=== PATIENT | male | born 1925 | race Caucasian/White ===

== ENCOUNTER 2017-01-30 10:49 | Inpatient (IN) | payer OTHER, MEDICARE ==
[~2017-01-30] VITALS: Ht 177.8 cm; Wt 61.7 kg
[~2017-01-30 10:49] MED LIST: ANTIVERT 12.512.5 MG PO; ANUSOL HC30 GM TOP; ASPIRIN CHILDRE81 MG PO; ASPIRIN EC81 M1 PO; ATORVASTATIN CA20 MG PO; ATORVASTATIN CA40 MG PO; ATORVASTATIN CA80 MG PO; CARVEDILOL12.5 M1 PO; CLOPIDOGREL75 M1 PO; LANOXIN-DIGO0.125 MG PO; LISINOPRIL2.5 MG; LISINOPRIL2.5 MG PO; LOPRESSOR 12.12.5 MG PO; MAGNESIUM OXID400 M1 PO; MIDODRINE HCL10 MG PO; MIDODRINE HCL5 M1 PO; MIDODRINE HYDRO10 MG PO; MULTIPLE VITAM1 EAC2 PO; MULTIVITAMIN1 TAB PO; OMEGA 31000 MG PO; PANTOPRAZOLE SO40 MG PO; PROCTOSOL-HC2.5% RC; PROTONIX 40MG T40 MG PO; RANEXA 500MG500 MG; RANEXA 500MG500 MG PO; RANITIDINE HYD150 MG PO; RAPAFLO8 MG PO; SERTRALINE HYD100 MG PO; SERTRALINE50 MG PO; TRAMADOL50 MG PO; XARELTO10 MG PO; ZANTAC150 M1 PO; ZOLOFT100 M1 PO
--- NOTE | 2017-01-30 10:56 | NUR ---
PT TO ED WITH C/O HEADACHE AND DIZZINESS. PT FELL 4 DAYS AGO DUE TO BEING DIZZY, HIT HEAD ON FLOOR, - LOC. PT C/O WEAKNESS. STATES PT HAS BEEN FALLING ALOT LATELY. PT IS NOT ON BLOOD THINNERS. PT TAKEN TO ROOM 1 FROM TRIAGE.
--- NOTE | 2017-01-30 11:05 | ED GENERAL ADULT ---
History of Present Illness General Chief Complaint: General Adult Stated Complaint: WERANESS, JOSÉ, VOMITING Source: patient, family Exam Limitations: poor historian Vital Signs & Intake/Output Vital Signs & Intake/Output Vital Signs Date Time Temp Pulse Resp B/P Pulse O2 O2 Flow FiO2 Ox Delivery Rate 01/30 1919 98.3 85 18 152/70 95 Room Air 01/30 1759 97.1 81 18 120/59 98 01/30 1439 98.2 80 18 138/76 96 01/30 1206 98 Room Air 01/30 1053 97.1 89 20 111/69 97 Room Air Allergies Coded Allergies: No Known Allergies (01/30/17) Reconcile Medications Atorvastatin Calcium 40 MG TABLET 1 TAB PO DAILY CHOLESTEROL (Reported) Carvedilol 12.5 MG TABLET 1 TAB PO BID HEART (Reported) Cholecalciferol (Vitamin D3) 1,000 UNIT TABLET 1 TAB PO DAILY SUPPLEMENT ( Reported) Droxidopa (Northera) 300 MG CAPSULE 2 CAP PO TIDAC UNKNOWN (Reported) Magnesium Oxide 400 MG TABLET 1 TAB PO BID SUPPLEMENT (Reported) Multivitamin (Multiple Vitamins) 1 EACH TABLET 1 TAB PO QPM SUPPLEMENT ( Reported) Ranitidine HCl (Zantac) 150 MG TABLET 1 TAB PO BID GI (Reported) Ranolazine (Ranexa) 500 MG TAB.ER.12H 1 TAB PO BID ANGINA (Reported) Sertraline HCl (Zoloft) 100 MG TABLET 1 TAB PO DAILY MENTAL HEALTH (Reported) Triage Note: PT TO ED WITH C/O HEADACHE AND DIZZINESS. PT FELL 4 DAYS AGO DUE TO BEING DIZZY, HIT HEAD ON FLOOR, - LOC. PT C/O WEAKNESS. STATES PT HAS BEEN FALLING ALOT LATELY. PT IS NOT ON BLOOD THINNERS. PT TAKEN TO ROOM 1 FROM TRIAGE. Triage Nurses Notes Reviewed? yes Onset: Abrupt Duration: day(s): Timing: recent history HPI: 01/30/17 11:28 AM This is an 89-year-old man who presents to the emergency department for frequent falls and headache. According to the patient and his he was in his usual state of health until 4 days ago when he fell and hit his head. He complains of pain in the top of his head. He also admits to weakness. He also says that he' s had some shortness of breath but this is ongoing and intermittent. The onset of the symptoms been abrupt, the duration has been for 4 days, the severity is significant; as his symptoms required him to come to the emergency department for care. He has associated weakness and headache. Past History Travel History Traveled to [place] past 21 day No Medical History Any Pertinent Medical History? see below for history Neurological: vertigo, IMBALANCE DIFFICULTIES SUBDURAL HEMATOMA EENT: cataracts, hearing loss Cardiovascular: AFIB, hyperlipidemia, myocardial infarction, CABGX3 ORTHOSTATIC HYPOTENSION CARDIAC CATHERIZATION ISCHEMIC CARDIOMYOPATHY 3 CARDIAC STENTS CHF, PACER/DEFIBLCW Respiratory: NONE Gastrointestinal: GERD Hepatic: NONE Renal: NONE Musculoskeletal: NONE Psychiatric: depression Endocrine: NONE Blood Disorders: NONE Cancer(s): adrenal cancer GENERATION TECHNOLOGIST/Reproductive: NONE History of MRSA: No History of VRE: No History of CDIFF: No Tetanus Vaccine: 03/03/15 Surgical History Surgical History: appendectomy, cholecystectomy, hernia repair-inguinal, TRIPLE BYPASS CARDIAC Psychosocial History Who do you live with Spouse Services at Home None What is your primary language Yi Tobacco Use: Quit >30 days ago ETOH Use: denies use Illicit Drug Use: denies illicit drug use Family History Family History, If Any: FATHER, . Relation not specified for: FHx: heart disease Hx Contributory? No Review of Systems Review of Systems Constitutional: Denies: fever. EENTM: Denies: visual changes. Respiratory: Reports: short of breath. Cardiovascular: Denies: chest pain. GI: Denies: abdominal pain. Genitourinary: Reports: no symptoms. Musculoskeletal: Reports: no symptoms. Skin: Denies: rash. Neurological/Psychological: Reports: headache. Hematologic/Endocrine: Denies: bruising. Physical Exam Physical Exam General Appearance: alert, awake, anxious, mild distress Head: normal appearance, scar at top of head Eyes: Bilateral: normal appearance, PERRL, EOMI. Ears, Nose, Throat: normal pharynx, normal ENT inspection Neck: normal inspection, supple, full range of motion, no midline tenderness Respiratory: chest non-tender, no respiratory distress Cardiovascular: regular rate/rhythm Peripheral Pulses: 4+ radial (R), 4+ radial (L) Gastrointestinal: soft, non-tender Back: decreased range of motion Extremities: pedal edema Neurologic/Psych: no motor/sensory deficits, awake, alert, oriented x 3 Skin: intact, normal color, warm/dry Core Measures ACS in differential dx? No CVA/TIA Diagnosis: No Severe Sepsis Present: No Septic Shock Present: No Progress Differential Diagnoses I considered the following diagnoses in my evaluation of the patient: [ Dehydration, adverse drug reaction, dysrhythmia, acute coronary syndrome, CVA, TIA, intracranial bleed] Plan of Care: Orders Procedure Date/time Status Heart Healthy Diet 01/[address] HEAD WO IV CONTRAST 01/31 1100 Active CBC WITHOUT DIFFERENTIAL 01/31 0600 Active Heart Healthy Diet 01/30 D Complete Lab Add-on Test 01/30 1807 Active Patient Data 01/30 1738 Active PT Evaluate & Treat 01/30 1723 Active Pathway - chart 01/30 1723 Active House Staff 01/30 1723 Active Patient Data 01/30 1723 Active Code Status 01/30 1723 Active Patient Data 01/30 1325 Active Admit to inpatient 01/30 1315 Active Vital Signs 01/30 1315 Active Intake & Output 01/30 1206 Active PROTHROMBIN TIME 01/30 1152 Complete MAGNESIUM 01/30 1152 Complete Add-on Test (ER Only) 01/30 1147 Active TROPONIN LEVEL 01/30 1122 Complete COMPREHENSIVE METABOLIC PANEL 01/30 1122 Complete CBC WITHOUT DIFFERENTIAL 01/30 1122 Complete EKG 01/30 1122 Active VTE Mechanical Prophylaxis 01/30 UNK Active Telemetry/Pattern Chain Builder 01/30 UNK Active NIH Stroke Scale 01/30 UNK Active Current Medications Sig/Rossana Start time Last Medication Dose Stop Time Status Admin Atorvastatin Calcium 40 MG 1700 01/31 1700 AC (Lipitor) Cholecalciferol 1,000 IU DAILY 01/31 1000 AC (Vitamin D) Sertraline HCl 100 MG DAILY 01/31 1000 AC (Zoloft) Carvedilol 12.5 MG BID 01/30 2200 AC (Coreg) Famotidine 20 MG BID 01/30 2200 AC (Pepcid) Magnesium Oxide 400 MG BID 01/30 2200 AC (Mag-Ox) Multivitamins 1 TAB QPM 01/30 2200 AC Therapeutic (Theragran-M Vitamins Tabs) Ranolazine 500 MG BID 01/30 2200 AC (Ranexa) Droxidopa 600 MG TIDAC 01/30 1815 AC (Northera) Acetaminophen 650 MG Q6P PRN 01/30 1730 AC (Tylenol) Laboratory Tests 03/28/17 1152: Anion Gap 7, Estimated GFR > 60, BUN/Creatinine Ratio 25.0, Glucose 123 H, Calcium 9.6, Magnesium 1.9, Total Bilirubin 0.7, AST 24, ALT 32, Alkaline Phosphatase 76, Troponin I < 0.01, Total Protein 6.4, Albumin 4.0, Globulin 2.4, Albumin/Globulin Ratio 1.7, PT 13.3 H, INR 1.27 H, CBC w Diff NO MAN DIFF REQ, RBC 4.11 L, MCV 91.3, MCH 30.7, RDW 14.5, MPV 7.7, Gran % 69.8, Lymphocytes % 16.7 L, Monocytes % 10.7 H, Eosinophils % 2.0, Basophils % 0.8, Absolute Granulocytes 6.3, Absolute Lymphocytes 1.5, Absolute Monocytes 1.0 H, Absolute Eosinophils 0.2, Absolute Basophils 0.1, PUBS MCHC 33.7 Initial ED EKG: NSR, nonspecific interventricular conduction delay, PVC Departure Departure Disposition: STILL A PATIENT Condition: Guarded Clinical Impression Primary Impression: Headache Secondary Impressions: Acute subdural hematoma Referrals: CATRINA ALLEN,YANNI Saul (PCP/Family) Departure Forms: Customer Survey General Discharge Information Admission Note Spoke With: GAUDENCIO LEA MD Documentation of Exam: Documentation of any treatments & extenuating circumstances including Concerns Regarding Discharge (functional status, medication knowledge or non-compliance, living conditions, etc.) that warrant an admission rather than observation: [The patient needs admission for serial CT scans, neurosurgical consultation, neuro checks every 6 hours] The patient's CT revealed acute subdural hematoma He was treated with IV Tylenol I discussed the case with the on-call neurosurgeon Dr. Lindquist. We are in agreement with the plan of care. Medical admission. Neuro checks. Repeat CT scan of the head in 24 hours. She will see the patient in consult. CT scan results shown below PATIENT: VENTURA ORTIZ PRESENT AGE: 89 PATIENT ACCOUNT NO: [id number] : [birth year] LOCATION: [facility] ORDERING PHYSICIAN: MELVINA SHAVER DO SERVICE DATE: 01/30/17 EXAM TYPE: CAT - CT HEAD WO IV CONTRAST EXAMINATION: CT HEAD WITHOUT CONTRAST CLINICAL INFORMATION: Fall, head trauma. COMPARISON: 11/05/2015 TECHNIQUE: Contiguous axial imaging was performed from the skull base to vertex without intravenous administration of contrast. DLP: 601 mGy-cm FINDINGS: There is subdural hematoma layering along the falx and extending along the left tentorial leaflet. This measures approximately 1.2 cm in maximal thickness along the falx above the level of the ventricles. Additional subdural hematoma is seen along the left cerebral convexity, measuring up to 0.5 cm at the level of the lateral ventricles. Due to underlying volume loss, there is minimal local mass effect. No midline shift. No evidence of territorial infarction. Sorto to white matter differentiation is well preserved. No intraparenchymal hemorrhage or intraventricular hemorrhage is visualized. No hydrocephalus. Moderate underlying volume loss. Mild patchy periventricular and deep white matter hypoattenuation is consistent with small vessel ischemic change. The osseous structures and soft tissues are normal. The mastoid air cells and visualized portions of the paranasal sinuses are well aerated. IMPRESSION: Subdural hematoma with blood products along the falx and left tentorial leaflet and extending along the left cerebral convexity. No significant mass effect. No midline shift. This critical result was discussed with MELVINA SHAVER MD by telephone at 01/30/2017 12:00 PM and it was ascertained that the content and urgency of the report was understood at the time of direct communication. DICTATED BY: JORDI LEIJA MD DATE/TIME DICTATED:01/30/171154 CIGARETTE FILTER INSPECTOR:ALEXANDER DATE/TIME TRANSCRIBED:01/30/171154 CONFIDENTIAL, DO NOT COPY WITHOUT APPROPRIATE AUTHORIZATION. <Electronically signed in Other Vendor System> SIGNED BY: JORDI LEIJA MD 01/30 1200 Critical Care Note Critical Care Note Critical Care Time: 30-74 min
[2017-01-30] MEDS ORDERED: ATORVASTATIN CA40 M1 PO (11:06)
[2017-01-30] MEDS ORDERED: VITAMIN E100 UNI1 PO (11:08)
[2017-01-30] MEDS ORDERED: NORTHERA300 MG PO (11:09)
[2017-01-30] MEDS ORDERED: RANEXA500 M1 PO (11:11)
--- NOTE | 2017-01-30 11:34 | NUR ---
PT TAKEN TO ROOM 1 VIA W/C. MET IN ROOM BY STUDENT AND LISHA BURK. TAKEN TO CT SCAN VIA STRETCHER
--- NOTE | 2017-01-30 12:02 | NUR ---
BACK FROM CT SCAN PT SPEAKING CLEARLY WITH NO DEFICITS NOTED. ALERT/ORIENTED X 4, CONVERSING ABOUT /FAMILY/HIS PAST WITH NO DEFICITS OR CONFUSION NOTED. PT REPORTS LONG HISTORY OF DIZZINESS - "FOR YEARS, KAM BEEN TO 2 SPECIALISTS AND THEY DONT KNOW ..." - REPORTS MULTIPLE RECENT FALLS. PT STATES HE SUSTAINS NO INJURIES WITH FALLS THOUGH REPORTS HEADACHE (FRONTAL) X 5 DAYS. DENIES BLURRED VISION. INTERMITTENT NAUSEA. PT STATES "I FELT BETTER TODAY AND WASNT GOING TO COME IN" HOWEVER CALLED PMD AND WAS ADVISED TO SEEK EVALUATION. DEFIBRILLATOR NOTED TO L UPPER CHEST. NOT PACER PER PT BLOODWORK SENT BY [facility] WENDY SMITH EST. NORMAL SALINE INFUSING @ 75 ML/HR PER JAN. BLANKETS/PILLOW PROVIDED. PT DENIES NEEDING ANYTHING ELSE AT THIS TIME
--- NOTE | 2017-01-30 12:05 | CT SCAN REPORT ---
EXAMINATION: CT HEAD WITHOUT CONTRAST CLINICAL INFORMATION: Fall, head trauma. COMPARISON: 11/05/2015 TECHNIQUE: Contiguous axial imaging was performed from the skull base to vertex without intravenous administration of contrast. DLP: 601 mGy-cm FINDINGS: There is subdural hematoma layering along the falx and extending along the left tentorial leaflet. This measures approximately 1.2 cm in maximal thickness along the falx above the level of the ventricles. Additional subdural hematoma is seen along the left cerebral convexity, measuring up to 0.5 cm at the level of the lateral ventricles. Due to underlying volume loss, there is minimal local mass effect. No midline shift. No evidence of territorial infarction. Sorto to white matter differentiation is well preserved. No intraparenchymal hemorrhage or intraventricular hemorrhage is visualized. No hydrocephalus. Moderate underlying volume loss. Mild patchy periventricular and deep white matter hypoattenuation is consistent with small vessel ischemic change. The osseous structures and soft tissues are normal. The mastoid air cells and visualized portions of the paranasal sinuses are well aerated. IMPRESSION: Subdural hematoma with blood products along the falx and left tentorial leaflet and extending along the left cerebral convexity. No significant mass effect. No midline shift. This critical result was discussed with MELVINA SHAVER MD by telephone at 01/30/2017 12:00 PM and it was ascertained that the content and urgency of the report was understood at the time of direct communication.
[2017-01-30 12:10] LABS: ABSOLUTE BASOPHIL COUNT 0.1 /CUMM (0.0-0.2); ABSOLUTE EOSINOPHIL COUNT 0.2 /CUMM (0.0-0.7); ABSOLUTE GRANULOCYTE CT 6.3 /CUMM (1.4-6.5); ABSOLUTE LYMPH COUNT 1.5 /CUMM (1.2-3.4); BASOPHIL % 0.8 % (0.0-2.0); GRANULOCYTE % 69.8 % (42.2-75.2); HEMATOCRIT 37.5 % (42-52); MEAN CORPUSCULAR HGB 30.7 PG (27.0-31.0); MEAN CORPUSCULAR HGB CONC 33.7 G/DL (33.0-37.0); MEAN CORPUSCULAR VOLUME 91.3 FL (80.0-94.0); MEAN PLATELET VOLUME 7.7 FL (7.4-10.4); PLATELET COUNT 162 /CUMM (130-400); RBC DISTRIBUTION WIDTH 14.5 % (11.5-14.5); RED BLOOD CELL CT 4.11 /CUMM (4.70-6.10)
[2017-01-30 12:12] LABS: PT 13.3 SEC (9.4-12.5)
--- NOTE | 2017-01-30 12:31 | Cons- Neurosurgical ---
General Information and HPI Consulting Request Date of Consult: 01/30/17 Requested By: Dr. Brown, ED Reason for Consult: trauma, ICH Source of Information: patient, ED, records Exam Limitations: no limitations History of Present Illness: 89-year-old man who presents to the emergency department for frequent falls and headache. According to the patient he sustained a fall at home almost 2 weeks ago with injury to the right hip and was in his usual state of health until last Sun when he fell backward and hit his head on the floor at home. He complains of pain in the top of his head. He also admits to weakness and headache. He reports his JOSÉ to be most prominent in the night and the lead sustainability specialist with imoprovement during the days not associated with any N/V/ focal deficit or seizure. CT head in ED consistent with subdural hemorrhage and consult requested. Allergies/Medications Allergies: Coded Allergies: No Known Allergies (01/30/17) Home Med List: Atorvastatin Calcium 40 MG TABLET 1 TAB PO DAILY CHOLESTEROL (Reported) Carvedilol 12.5 MG TABLET 1 TAB PO BID HEART (Reported) Cholecalciferol (Vitamin D3) 1,000 UNIT TABLET 1 TAB PO DAILY SUPPLEMENT ( Reported) Droxidopa (Northera) 300 MG CAPSULE 2 CAP PO TIDAC UNKNOWN (Reported) Magnesium Oxide 400 MG TABLET 1 TAB PO BID SUPPLEMENT (Reported) Midodrine HCl 5 MG TABLET 3 TAB PO TID BP (Reported) Multivitamin (Multiple Vitamins) 1 EACH TABLET 1 TAB PO QPM SUPPLEMENT ( Reported) Ranitidine HCl (Zantac) 150 MG TABLET 1 TAB PO BID GI (Reported) Ranolazine (Ranexa) 500 MG TAB.ER.12H 1 TAB PO BID ANGINA (Reported) Sertraline HCl (Zoloft) 100 MG TABLET 1 TAB PO DAILY MENTAL HEALTH (Reported) Current Medications: Current Medications Sig/Rossana Start time Last Medication Dose Route Stop Time Status Admin Sodium Chloride 1,000 ML ONCE ONE 01/30 1145 AC 01/30 IV 01/31 0104 1205 Past History Medical History Neurological: vertigo, IMBALANCE DIFFICULTIES SUBDURAL HEMATOMA EENT: cataracts, hearing loss Cardiovascular: AFIB, hyperlipidemia, myocardial infarction, CABGX3 ORTHOSTATIC HYPOTENSION CARDIAC CATHERIZATION ISCHEMIC CARDIOMYOPATHY 3 CARDIAC STENTS CHF, PACER/DEFIBLCW Respiratory: NONE Gastrointestinal: GERD Hepatic: NONE Renal: NONE Musculoskeletal: NONE Psychiatric: depression Endocrine: NONE Blood Disorders: NONE Cancer(s): adrenal cancer METAL TEMPLATE MAKER/Reproductive: NONE Surgical History Pertinent Surgical History: appendectomy, cholecystectomy, hernia repair- inguinal, TRIPLE BYPASS CARDIAC Family History Relations & Conditions If Any: FATHER, . Relation not specified for: FHx: heart disease Psychosocial History Where Do You Live? Home Who Do You Live With? spouse Services at Home: None Primary Language: Citizen Of [place] ETOH Use: denies use Illicit Drug Use: denies illicit drug use Functional Ability ADLs Independent: dressing, eating, toileting, bathing. Ambulation: cane, walker IADLs Independent: shopping, finances. Review of Systems Review of Systems: frequent falls Exam & Diagnostic Data Vital Signs and I&O Vital Signs Date Time Temp Pulse Resp B/P Pulse O2 O2 Flow FiO2 Ox Delivery Rate 01/30 1206 98 Room Air 01/30 1053 97.1 89 20 111/69 97 Room Air Intake & Output 01/30 1600 01/30 0800 01/30 0000 01/29 1600 01/29 0800 01/29 0000 Intake Total Output Total Balance Patient 61.235 kg Weight Physical Exam: Pt is awake and alert, oriented x3 and conversive and appropriate PERRL, EOMI face sym, speech clear and fluent neck supple with mild stiffness, no signif pain on flex/ex, rotation moves all 4 extrem with nl power, no drift of the outstretched arms normal sensory all 4 extrem gait not tested no ataxia, tremor Last 24 Hours of Labs: Laboratory Tests 01/30 1152 Chemistry Sodium (137 - 145 mmol/L) 137 Potassium (3.5 - 5.1 mmol/L) 4.6 Chloride (98 - 107 mmol/L) 96 L Carbon Dioxide (22 - 30 mmol/L) 34 H Anion Gap (5 - 16) 7 BUN (9 - 20 mg/dL) 20 Creatinine (0.7 - 1.2 mg/dL) 0.8 Estimated GFR (>60 ml/min) > 60 BUN/Creatinine Ratio (7 - 25 %) 25.0 Glucose (65 - 99 mg/dL) 123 H Calcium (8.4 - 10.2 mg/dL) 9.6 Total Bilirubin (0.2 - 1.3 mg/dL) 0.7 AST (17 - 59 U/L) 24 ALT (21 - 72 U/L) 32 Alkaline Phosphatase (< 127 U/L) 76 Troponin I (<0.11 ng/ml) Pending Total Protein (6.3 - 8.2 g/dL) 6.4 Albumin (3.5 - 5.0 g/dL) 4.0 Globulin (1.9 - 4.2 gm/dL) 2.4 Albumin/Globulin Ratio (1.1 - 2.2 %) 1.7 Coagulation PT (9.4 - 12.5 SEC) 13.3 H INR (0.90 - 1.17) 1.27 H Hematology CBC w Diff NO MAN DIFF REQ WBC (4.8 - 10.8 /CUMM) 9.0 RBC (4.70 - 6.10 /CUMM) 4.11 L Hgb (14.0 - 18.0 G/DL) 12.6 L Hct (42 - 52 %) 37.5 L MCV (80.0 - 94.0 FL) 91.3 MCH (27.0 - 31.0 PG) 30.7 RDW (11.5 - 14.5 %) 14.5 Plt Count (130 - 400 /CUMM) 162 MPV (7.4 - 10.4 FL) 7.7 Gran % (42.2 - 75.2 %) 69.8 Lymphocytes % (20.5 - 51.1 %) 16.7 L Monocytes % (1.7 - 9.3 %) 10.7 H Eosinophils % (0 - 5 %) 2.0 Basophils % (0.0 - 2.0 %) 0.8 Absolute Granulocytes (1.4 - 6.5 /CUMM) 6.3 Absolute Lymphocytes (1.2 - 3.4 /CUMM) 1.5 Absolute Monocytes (0.10 - 0.60 /CUMM) 1.0 H Absolute Eosinophils (0.0 - 0.7 /CUMM) 0.2 Absolute Basophils (0.0 - 0.2 /CUMM) 0.1 PUBS MCHC (33.0 - 37.0 G/DL) 33.7 Imaging Results: CT head: Subdural hematoma with blood products along the falx and left tentorial leaflet and extending along the left cerebral convexity. No significant mass effect. No midline shift. Assessment/Plan Assessment/Plan Pt 89yo male with h/o frequent falls and now fall 4 days ago with subdural blook layering along falx and left tentorium without mass effect. Rec: -monitor neurologic exam -keep HOB at 30degrees -keep SBP less than 160 -repeat head CT in 24 hours, sooner for change in neurologic exam -withhold any/all antiplatelet or anticoagulant medications -clarify code status- pt indicates he would not wish aggressive intervention in event the clinical situation deteriorates or if he has progression of bleeding such that surgical intervention would be considered -will follow -call with questions Consult Acknowledgment - Thank you for your consult request. Attending MD Review Statement Attending Statement Attending MD Statement: examined this patient, discuss w/resident/PA/CARD MAKER, discussed w/nursing, reviewed images
[2017-01-30] MEDS ORDERED: VITAMIN D31000 UNI2 PO (12:47)
--- NOTE | 2017-01-30 12:49 | NUR ---
PT CONTINUES TO REST WITH NO COMPLAINTS. NO DEFICITS NOTED. IV TYLENOL INFUSING AT THIS TIME. PT ASKING FOR COFFEE. SPOKE WITH DR SHAVER WHO STATES OK AT THIS TIME ORDERED THROUGH DIETARY.
--- NOTE | 2017-01-30 13:39 | NUR ---
COFFEE PROVIDED. CLEARED WITH DR SHAVER THAT PT MAY DRINK.
--- NOTE | 2017-01-30 13:42 | NUR ---
DR SHAVER INTO DISCUSS RESULTS
--- NOTE | 2017-01-30 14:12 | NUR ---
ROAST BEEF SANDWICH ORDERED THROUGH DIETARY (MAKI).
--- NOTE | 2017-01-30 14:38 | NUR ---
PT PROVIDED WITH SANDWICH. OK WITH DR SHAVER REMAINS WITHOUT ANY ADDITIONAL COMPLAINTS. NO DEFICITS APPRECIATED
--- NOTE | 2017-01-30 14:44 | NUR ---
HOUSE STAFF INTO EVAL
--- NOTE | 2017-01-30 15:13 | NUR ---
REPORT TAKEN FROM NILESH BEAL, ASSUMING CARE
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
--- NOTE | 2017-01-30 18:02 | NUR ---
BED ASSIGNMENT [id number]
--- NOTE | 2017-01-30 18:42 | RADIOLOGY REPORT ---
EXAMINATION: XR HIP, RIGHT CLINICAL INFORMATION: Right hip bruise with right leg weakness. COMPARISON: CT from 09/19/2008. TECHNIQUE: Single view of the right hip. FINDINGS: No evidence of acute fracture or dislocation. Degenerative changes are seen at the right hip with joint space narrowing and osteophyte formation. The visualized portion of the right hemipelvis is intact. The soft tissues are unremarkable. IMPRESSION: No acute fracture or dislocation. Degenerative changes.
[2017-01-30 19:19] VITALS: BP 152/70
[2017-01-30 23:14] VITALS: BP 146/62
[2017-01-31 06:25] VITALS: BP 138/66
--- NOTE | 2017-01-31 07:12 | PN- Housestaff ---
See Addendum Subjective Follow-up For: Subdural hematoma Complaints: hedache, nausea, vomiting, neck pain Tele-Events Since Last Visit: NSR,64 -82,PVC Subjective: Patient is seen and examined at the bedside. He was complaining of headache, neck pain, nausea, had an episode of vomiting. He denies any new weakness in the body, vision changes, chest pain, shortness of breath, incontinence of stool and urine. Review of Systems Constitutional: Reports: weakness. EENTM: Denies: visual changes, eye pain, ear pain, hearing changes, throat pain. Cardiovascular: Denies: chest pain, edema, orthopena, palpitations. Respiratory: Denies: cough, hemoptysis, orthopnea, short of breath. Gastrointestinal: Reports: nausea, vomiting. Denies: abdominal pain. Genitourinary: Denies: no symptoms. Musculoskeletal: Reports: neck pain. Denies: back pain. Skin: Denies: no symptoms. Neurological/Psychological: Reports: anxiety, depressed, headache, unable to move lower ext, unable to move upper ext. Denies: cognitive dysfunction, confusion, dementia, emotional problems. Objective Last 24 Hrs of Vital Signs/I&O Vital Signs Date Time Temp Pulse Resp B/P Pulse O2 O2 Flow FiO2 Ox Delivery Rate 01/31 0932 69 104/53 01/31 0931 75 104/53 01/31 0625 75 138/66 01/30 2314 98.3 76 18 146/62 95 Room Air 01/30 2145 82 146/62 01/30 2145 82 146/62 01/30 1919 98.3 85 18 152/70 95 Room Air 01/30 1759 97.1 81 18 120/59 98 01/30 1439 98.2 80 18 138/76 96 Intake & Output 01/31 1600 01/31 0800 01/31 0000 Intake Total 240 780 Output Total 650 650 Balance -410 130 Intake, IV 300 Intake, Oral 240 480 Number 0 Bowel Movements Output, Urine 650 650 Patient 61.689 kg Weight Physical Exam General Appearance: Alert, Oriented X3, Cooperative, Moderate Distress Skin: No Rashes Neck: Supple, No JVD Cardiovascular: Normal S1, Normal S2 Lungs: Clear to Auscultation, Normal Air Movement Abdomen: Soft, No Tenderness Neurological: Normal Speech, Strength at 5/5 X4 Ext, Normal Tone, Sensation Intact, Cranial Nerves 3-12 NL Extremities: No Clubbing, No Cyanosis, No Edema Vascular: Normal Pulses, Pulses Symmetrical Current Medications: Current Medications Sig/Rossana Start time Last Medication Dose Route Stop Time Status Admin Acetaminophen 650 MG Q6P PRN 01/30 1730 AC PO Acetaminophen 1,000 MG ONCE ONE 01/30 1300 DC 01/30 IV 01/30 1301 1250 Acetaminophen 0 .STK-MED ONE 01/30 1244 DC IV Acetaminophen/ 1 TAB Q4P PRN 01/31 0845 AC 01/31 Butalbital/Caffeine PO 1205 Atorvastatin Calcium 40 MG 1700 01/31 1700 AC PO Carvedilol 12.5 MG BID 01/30 2200 AC 01/31 PO 0931 Cholecalciferol 1,000 IU DAILY 01/31 1000 AC 01/31 PO 0932 Droxidopa 600 MG TIDAC 01/31 1700 AC PO Droxidopa 600 MG TIDAC 01/31 1200 DC PO Droxidopa 600 MG TIDAC 01/31 1200 DC PO 01/31 1201 Droxidopa 600 MG TIDAC 01/30 1815 DC 01/31 PO 0927 Famotidine 20 MG BID 01/30 2200 AC 01/31 PO 0931 Magnesium Oxide 400 MG BID 01/30 2200 AC 01/31 PO 0932 Morphine Sulfate 2 MG ONCE ONE 01/31 0730 DC 01/31 IV 01/31 0731 0915 Morphine Sulfate 2 MG ONCE ONE 01/31 0300 DC 01/31 IV 01/31 0301 0305 Multivitamins 1 TAB QPM 01/30 2200 AC 01/30 Therapeutic PO 2145 Ondansetron HCl 4 MG ONCE ONE 01/31 0930 DC 01/31 IV 01/31 0931 0931 Ondansetron HCl 4 MG ONCE ONE 01/31 0700 DC 01/31 IV 01/31 0701 0700 Oxycodone/ 1 TAB ONCE ONE 01/30 2115 DC 01/30 Acetaminophen PO 01/30 2116 2145 Phytonadione 5 MG ONCE ONE 01/31 0845 DC 01/31 SC 01/31 0846 0918 Ranolazine 500 MG BID 01/30 2200 AC 01/31 PO 0932 Sertraline HCl 100 MG DAILY 01/31 1000 AC 01/31 PO 0931 Sodium Chloride 1,000 ML ONCE ONE 01/30 1145 DC 01/30 IV 01/31 0104 1205 Last 24 Hrs of Lab/Cesario Results Last 24 Hrs of Labs/Mics: Laboratory Tests 01/31/17 1010: Anion Gap 6, Estimated GFR > 60, Glucose 135 H, Calcium 9.2, Phosphorus 3.4, Magnesium 1.8, Total Bilirubin 0.8, AST 22, ALT 35, Albumin 3.8, PT 13.3 H, INR 1.27 H 01/31/17 0655: CBC w Diff NO MAN DIFF REQ, RBC 3.99 L, MCV 91.9, MCH 31.0, RDW 14.3, MPV 7.9, Gran % 67.3, Lymphocytes % 20.5, Monocytes % 9.8 H, Eosinophils % 1.6, Basophils % 0.8, Absolute Granulocytes 6.2, Absolute Lymphocytes 1.9, Absolute Monocytes 0.9 H, Absolute Eosinophils 0.1, Absolute Basophils 0.1, PUBS MCHC 33.7 Microbiology 01/31 900 UPPER RESP: Surveillance Culture - RECD 01/31 900 GI: Surveillance Culture - RECD Assessment/Plan Assessment: Patient is an 89-year-old male with a past medical history of CAD status post CABG,ICD, orthostatic hypotension on Droxidopa, history of multiple falls including one episode that resulted in subdural hematoma(requiring [facility] admission with no surgical intervention required) presents with c/o hedache with hx of mechanical fall 4 days ago. Vital signs -temperature 98.3, pulse 69, respiratory rate 18, blood pressure 104 /53, SPO2 95% on room air CT scan of the head -Subdural hematoma with blood products along the falx and left tentorial leaflet and extending along the left cerebral convexity. No significant mass effect. No midline shift. Plan - Subdural hematoma of along the falx and left tentorial leaflet - * Patient was having headache, neck stiffness, nausea, vomiting , probably due to increased intracranial pressure secondary to the hematoma. * Advised to transfer the patient in ICU * Advice neuro checks every 1 hour * Advised for stat CT scan of the head without contrast * Advised to avoid narcotic pain medication such as morphine,as they increase headache. * Discussed with the neurologist, Dr. Lindquist - * Advised to keep low threshold to transfer to [facility] as patient may need neurosurgery in future or neurosurgery ICU care * Advise if needed, use furoset for the pain * Advised to avoid nausea/vomiting, by giving round the clock antinausea medication. * INR was 1.25, she advised to give injection vitamin K in low doses to keep the INR in normal range * Patient was also complaining of neck pain -it was decided to get the CT scan of the cervical spine to rule out any fracture * continue IV fluid - 75cc/hr * We will start on pantocid - 40mg IV OD * Strict i/o charting Diet -nothing by mouth DVT prophylaxis - ALPS Code status -DNR/DNI Problem List: 1. Acute subdural hematoma Pain Ratin Pain Location: Head and the neck Pain Goal: Remain pain free Pain Plan: mild, avoid narcotics Tomorrow's Labs & Rationales: BEP - nausea, vomiting may leads to dyselectrolytemia DVT/Prophylaxis: mechanical
[2017-01-31 08:00] VITALS: BP 140/70
[2017-01-31 08:11] LABS: ABSOLUTE BASOPHIL COUNT 0.1 /CUMM (0.0-0.2); ABSOLUTE EOSINOPHIL COUNT 0.1 /CUMM (0.0-0.7); ABSOLUTE GRANULOCYTE CT 6.2 /CUMM (1.4-6.5); ABSOLUTE LYMPH COUNT 1.9 /CUMM (1.2-3.4); ABSOLUTE MONOCYTE COUNT 0.9 /CUMM (0.10-0.60); BASOPHIL % 0.8 % (0.0-2.0); EOSINOPHIL % 1.6 % (0-5); GRANULOCYTE % 67.3 % (42.2-75.2); HEMATOCRIT 36.6 % (42-52); MEAN CORPUSCULAR HGB CONC 33.7 G/DL (33.0-37.0); MEAN CORPUSCULAR VOLUME 91.9 FL (80.0-94.0); MEAN PLATELET VOLUME 7.9 FL (7.4-10.4); PLATELET COUNT 170 /CUMM (130-400); RBC DISTRIBUTION WIDTH 14.3 % (11.5-14.5); RED BLOOD CELL CT 3.99 /CUMM (4.70-6.10); WHITE BLOOD CELL COUNT 9.2 /CUMM (4.8-10.8)
--- NOTE | 2017-01-31 08:25 | PN- Neurosurgical ---
See Addendum Subjective Subjective: Pt with persistent JOSÉ No N/V no also reports neck stiffness Objective Vital Signs and I&Os Vital Signs Date Time Temp Pulse Resp B/P Pulse O2 O2 Flow FiO2 Ox Delivery Rate 01/31 0625 75 138/66 01/30 2314 98.3 76 18 146/62 95 Room Air 01/30 2145 82 146/62 01/30 2145 82 146/62 01/30 1919 98.3 85 18 152/70 95 Room Air 01/30 1759 97.1 81 18 120/59 98 01/30 1439 98.2 80 18 138/76 96 01/30 1206 98 Room Air 01/30 1053 97.1 89 20 111/69 97 Room Air Intake & Output 01/31 1600 01/31 0800 01/31 0000 01/30 1600 01/30 0800 01/30 0000 Intake Total 240 780 Output Total 650 650 Balance -410 130 Intake, IV 300 Intake, Oral 240 480 Number 0 Bowel Movements Output, Urine 650 650 Patient 61.689 kg 61.235 kg Weight Physical Exam: AF, VSS 91% sat RA per nurse PERRL, EOMI neck stiff face symmetric awake and alert, but visibly SOB speech clear and fluent, appropriate and conversant moving all 4 extrem to command, no drift UE good strength all extrem, sensory grossly intact Current Medications: Current Medications Sig/Rossana Start time Last Medication Dose Route Stop Time Status Admin Acetaminophen 650 MG Q6P PRN 01/30 1730 AC PO Acetaminophen 1,000 MG ONCE ONE 01/30 1300 DC 01/30 IV 01/30 1301 1250 Acetaminophen 0 .STK-MED ONE 01/30 1244 DC IV Atorvastatin Calcium 40 MG 1700 01/31 1700 AC PO Carvedilol 12.5 MG BID 01/30 2200 AC 01/30 PO 214 Cholecalciferol 1,000 IU DAILY 01/31 1000 AC PO Droxidopa 600 MG TIDAC 01/30 1815 AC 01/30 PO 214 Famotidine 20 MG BID 01/30 2200 AC 01/30 PO 2145 Magnesium Oxide 400 MG BID 01/30 2200 AC 01/30 PO 2145 Morphine Sulfate 2 MG ONCE ONE 01/31 0730 DC IV 01/31 0731 Morphine Sulfate 2 MG ONCE ONE 01/31 0300 DC 01/31 IV 01/31 0301 0305 Multivitamins 1 TAB QPM 01/30 2200 AC 01/30 Therapeutic PO 2144 Ondansetron HCl 4 MG ONCE ONE 01/31 0700 DC 01/31 IV 01/31 0701 0700 Oxycodone/ 1 TAB ONCE ONE 01/30 2115 DC 01/30 Acetaminophen PO 01/31 2116 214 Ranolazine 500 MG BID 01/30 2200 AC 01/30 PO 214 Sertraline HCl 100 MG DAILY 01/31 1000 AC PO Sodium Chloride 1,000 ML ONCE ONE 01/30 1145 DC 01/30 IV 01/31 0104 1205 Results Last 48 Hours of Labs: Laboratory Tests 01/31 01/30 0655 1152 Chemistry Sodium (137 - 145 mmol/L) 137 Potassium (3.5 - 5.1 mmol/L) 4.6 Chloride (98 - 107 mmol/L) 96 L Carbon Dioxide (22 - 30 mmol/L) 34 H Anion Gap (5 - 16) 7 BUN (9 - 20 mg/dL) 20 Creatinine (0.7 - 1.2 mg/dL) 0.8 Estimated GFR (>60 ml/min) > 60 BUN/Creatinine Ratio (7 - 25 %) 25.0 Glucose (65 - 99 mg/dL) 123 H Calcium (8.4 - 10.2 mg/dL) 9.6 Magnesium (1.6 - 2.3 mg/dL) 1.9 Total Bilirubin (0.2 - 1.3 mg/dL) 0.7 AST (17 - 59 U/L) 24 ALT (21 - 72 U/L) 32 Alkaline Phosphatase (< 127 U/L) 76 Troponin I (<0.11 ng/ml) < 0.01 Total Protein (6.3 - 8.2 g/dL) 6.4 Albumin (3.5 - 5.0 g/dL) 4.0 Globulin (1.9 - 4.2 gm/dL) 2.4 Albumin/Globulin Ratio (1.1 - 2.2 %) 1.7 Coagulation PT (9.4 - 12.5 SEC) 13.3 H INR (0.90 - 1.17) 1.27 H Hematology CBC w Diff Pending NO MAN DIFF REQ WBC (4.8 - 10.8 /CUMM) Pending 9.0 RBC (4.70 - 6.10 /CUMM) Pending 4.11 L Hgb (14.0 - 18.0 G/DL) Pending 12.6 L Hct (42 - 52 %) Pending 37.5 L MCV (80.0 - 94.0 FL) Pending 91.3 MCH (27.0 - 31.0 PG) Pending 30.7 RDW (11.5 - 14.5 %) Pending 14.5 Plt Count (130 - 400 /CUMM) Pending 162 MPV (7.4 - 10.4 FL) Pending 7.7 Gran % (42.2 - 75.2 %) 69.8 Lymphocytes % (20.5 - 51.1 %) 16.7 L Monocytes % (1.7 - 9.3 %) 10.7 H Eosinophils % (0 - 5 %) 2.0 Basophils % (0.0 - 2.0 %) 0.8 Absolute Granulocytes (1.4 - 6.5 /CUMM) 6.3 Absolute Lymphocytes (1.2 - 3.4 /CUMM) 1.5 Absolute Monocytes (0.10 - 0.60 /CUMM) 1.0 H Absolute Eosinophils (0.0 - 0.7 /CUMM) 0.2 Absolute Basophils (0.0 - 0.2 /CUMM) 0.1 PUBS MCHC (33.0 - 37.0 G/DL) Pending 33.7 Recent Imaging Studies: CT 01/31 reviewed and compared to yest and essentially stable Assessment/Plan Assessment/Plan Pt 89yo with fall and SDH, persistent JOSÉ and now new SOB. Head CT stable. would rec: -cont close neurologic eval -Cervical CT to eval neck stiffness -eval SOB -judicious pain med for JOSÉ to avoid sedation -HOB 30 degrees -consider vit K for sl elevated INR -call with questions Attending MD Review Statement Attending Statement Attending MD Statement: examined this patient, discuss w/resident/PA/WALL INSULATION SPRAYER, discussed w/nursing
--- NOTE | 2017-01-31 08:25 | CT SCAN REPORT ---
EXAMINATION: CT HEAD WITHOUT CONTRAST CLINICAL INFORMATION: Follow-up subdural hematoma COMPARISON: 01/30/2017 TECHNIQUE: Contiguous axial imaging was performed from the skull base to vertex without intravenous administration of contrast. FINDINGS: Again seen is a subdural hematoma extending along the left aspect of the falx at the vertex and posteriorly, extending into the left tentorial leaflet as well. Anteriorly, the subdural hematoma appears to extend to the left and right of the falx. There is a left holohemispheric subdural hematoma as well, measuring 5 mm in transverse dimension, similar to prior study. Anteriorly, this measures 1 cm in greatest transverse width, similar to the prior study at the vertex that measures 1.2 cm in greatest width, unchanged. Along the superior aspect of the left tentorium it measures 8 mm in width, unchanged as well. Due to the underlying volume loss, there is minimal if any mass effect and no sulcal effacement or midline shift. The ventricular system is unchanged in configuration. Again seen is periventricular and subcortical white matter hypodensity consistent with chronic microvascular white matter ischemic changes. Sorto-white matter differentiation is maintained without evidence of acute large vessel territory ischemia. The osseous structures and soft tissues are normal. The mastoid air cells and visualized portions of the paranasal sinuses are well aerated. IMPRESSION: Unchanged appearance of subdural hematoma, with a left holohemispheric subdural hematoma as well as subdural hematoma along the falx and left tentorial leaflet. Because of diffuse parenchymal volume loss, there is minimal mass effect and no resultant sulcal effacement or midline shift.
--- NOTE | 2017-01-31 09:44 | Event Note ---
See Addendum Event Note Event Note: Dr. Lindquist saw the patient at the bedside. She advised * Keep a very low threshold to transfer the patient at tiff because probably he needs neurosurgical ICU for further care. * Yesterday patient was not complaining of neck pain and now started having neck pain so she was suspecting that it can be due to fracture of the neck, bone,we will get CT scan of neck to rule out any fracture in the neck, bone. * We will keep the INR in the normal range and give the patient small doses of vitamin K. * Advised that patient should be given furocet for pain.
--- NOTE | 2017-01-31 10:42 | CT SCAN REPORT ---
EXAMINATION: CT CERVICAL SPINE WITHOUT CONTRAST CLINICAL INFORMATION: Fall. Possible neck fracture. COMPARISON: CT scan of the cervical spine 09/19/2015. TECHNIQUE: A noncontrast axial CT scan of the cervical spine was obtained. Coronal and sagittal reformatted images were generated at the acquisition workstation. DLP: 313.68 mGy-cm FINDINGS: There is a mild levoscoliosis. There is narrowing of intervertebral disc height at C5-C6 and C6-C7. There are vacuum disc changes at C5-C6. There are marginal osteophytes at these levels as well as at C7-T1. There is loss of vertebral body height of T1 anteriorly, demonstrated on the prior study. There are no acute compression fractures and other vertebral body heights are maintained. Facet alignment is normal. There are multilevel degenerative changes in the cervical spine with facet arthropathy, posterior disc osteophyte complexes and uncovertebral osteophytes. There is moderate left foraminal narrowing at C5-C6 and C6-C7 and right foraminal narrowing at C6-C7. Overall, bone mineralization is normal. The lateral masses of C1 and C2 are normally aligned and the dens is intact. The atlantooccipital articulation is maintained. There is a left chest wall pacemaker generator with 2 leads, new compared to the prior study. There are sequelae of median sternotomy. There is extensive atheromatous calcification of the internal carotid and vertebral arteries. There are no pneumothoraces. There there is mild scarring at the lung apices. IMPRESSION: 1. There are no acute fractures or subluxations. 2. There are multilevel degenerative changes which appear similar compared to the prior study.
[2017-01-31 10:54] LABS: PT 13.3 SEC (9.4-12.5)
--- NOTE | 2017-01-31 11:34 | NUR ---
Physical Therapy - Consult received, pt transferred to ICU for neuro monitoring due to SDH, work up in progress, not appropriate for PT at this time. Please reconsult PT when pt deemed medically stable and appropriate to participate. Thank you.
--- NOTE | 2017-01-31 15:00 | NUR ---
PT TRANSFERED TO ICU EARLIER THIS AM, APPROX 0800, TO MONITOR PT NIH Q 1 HR. PT NIH HAS BEEN 0 EVERY HOUR. A/O X 3. PT HEADACHE 08/14. TX ONCE W MSO4 2MG, PT EXPERIENCED NAUSEA AND GIVEN ZOFRAN TIMES ONE. PT STARTED ON FIORCET AND HEADACHE HAS IMPROVED, CURRENTLY 02/12. VSS.
[2017-01-31 16:00] VITALS: BP 119/64
--- NOTE | 2017-01-31 16:00 | NUR ---
ASSUMED CARE OF PATIENT. PATIENT ALERT AND ORIENTED X3 REBEKAH. MOVES ALL EXTREMITIES R SIDE WEAKER THAN LEFT WHICH IS NOT NEW FOR PATIENT. ABLE TO FOLLOWS COMMANDS, C/O 6/10 HEADACHE. MONITOR NSR WITH REGULAR HEART SOUNDS, LUNGS CLEAR, PATIENT ON 2L OXYGEN VIA NC. ABD SOFT NON TENDER WITH GOOD BOWEL SOUNDS. PATIENT VOIDING CLEAR URINE IN URINAL WITHOUT ASSIST. SKIN INTACT.
--- NOTE | 2017-01-31 19:40 | Cons- Neurology ---
General Information and HPI Consulting Request Date of Consult: 01/31/17 Requested By: GAUDENCIO LEA MD Reason for Consult: Subdural hemorrhage Source of Information: patient, old records Exam Limitations: no limitations History of Present Illness: This is a very pleasant 89 year old right handed man who a number of days ago fell to the floor hitting his head during a bout of sudden dizziness. In the days to follow he developed a severe excruciating headache that seemed to get worse and worse as the days past. He also noted development of right sided weakness. He therefore came to the hospital. A NCHCT revealed a left sided subdural hemorrhage. He was given pain medications for his headaches and was able to sleep through the night, reporting he feels much better at the moment. He continues to have significant leg weakness. Allergies/Medications Allergies: Coded Allergies: No Known Allergies (01/30/17) Home Med List: Atorvastatin Calcium 40 MG TABLET 1 TAB PO DAILY CHOLESTEROL (Reported) Carvedilol 12.5 MG TABLET 1 TAB PO BID HEART (Reported) Cholecalciferol (Vitamin D3) 1,000 UNIT TABLET 1 TAB PO DAILY SUPPLEMENT ( Reported) Droxidopa (Northera) 300 MG CAPSULE 2 CAP PO TIDAC UNKNOWN (Reported) Magnesium Oxide 400 MG TABLET 1 TAB PO BID SUPPLEMENT (Reported) Multivitamin (Multiple Vitamins) 1 EACH TABLET 1 TAB PO QPM SUPPLEMENT ( Reported) Ranitidine HCl (Zantac) 150 MG TABLET 1 TAB PO BID GI (Reported) Ranolazine (Ranexa) 500 MG TAB.ER.12H 1 TAB PO BID ANGINA (Reported) Sertraline HCl (Zoloft) 100 MG TABLET 1 TAB PO DAILY MENTAL HEALTH (Reported) Current Medications: Current Medications Sig/Rossana Start time Last Medication Dose Route Stop Time Status Admin Acetaminophen 650 MG Q6P PRN 01/30 1730 AC PO Acetaminophen/ 1 TAB Q4P PRN 01/31 0845 AC 01/31 Butalbital/Caffeine PO 1639 Atorvastatin Calcium 40 MG 1700 01/31 1700 AC 01/31 PO 1646 Carvedilol 12.5 MG BID 01/30 2200 AC 01/31 PO 0931 Cholecalciferol 1,000 IU DAILY 01/31 1000 AC 01/31 PO 0932 Droxidopa 600 MG TIDAC 01/31 1700 AC 01/31 PO 1647 Droxidopa 600 MG TIDAC 01/31 1200 DC PO Droxidopa 600 MG TIDAC 01/31 1200 DC 01/31 PO 01/31 1201 1306 Droxidopa 600 MG TIDAC 01/30 1815 DC 01/31 PO 0927 Famotidine 20 MG BID 01/30 2200 AC 01/31 PO 0931 Magnesium Oxide 400 MG BID 01/30 2200 AC 01/31 PO 0932 Morphine Sulfate 2 MG ONCE ONE 01/31 0730 DC 01/31 IV 01/31 0731 0915 Morphine Sulfate 2 MG ONCE ONE 01/31 0300 DC 01/31 IV 01/31 0301 0305 Multivitamins 1 TAB QPM 01/30 2200 AC 01/30 Therapeutic PO 2145 Ondansetron HCl 4 MG ONCE ONE 01/31 0930 DC 01/31 IV 01/31 0931 0931 Ondansetron HCl 4 MG ONCE ONE 01/31 0700 DC 01/31 IV 01/31 0701 0700 Oxycodone/ 1 TAB ONCE ONE 01/30 2115 DC 01/30 Acetaminophen PO 01/30 2116 2145 Phytonadione 5 MG ONCE ONE 01/31 0845 DC 01/31 SC 01/31 0846 0918 Ranolazine 500 MG BID 01/30 2200 AC 01/31 PO 0932 Sertraline HCl 100 MG DAILY 01/31 1000 AC 01/31 PO 0931 Sodium Chloride 1,000 ML ONCE ONE 01/30 1145 DC 01/30 IV 01/31 0104 1205 Review of Systems Review of Systems: As per HPI. 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 Relation not specified for: FHx: heart disease Psychosocial History Where Do You Live? Home Who Do You Live With? spouse Services at Home: None Primary Language: Portuguese Smoking Status: Former Smoker ETOH Use: denies use Illicit Drug Use: denies illicit drug use Functional Ability ADLs Independent: dressing, eating, toileting, bathing. Ambulation: cane, walker IADLs Independent: shopping, finances. Exam & Diagnostic Data Vital Signs and I&O Vital Signs Date Time Temp Pulse Resp B/P Pulse O2 O2 Flow FiO2 Ox Delivery Rate 01/31 1200 97 Nasal 2.0L Cannula 01/31 0932 69 104/53 01/31 0931 75 104/53 01/31 0800 97 Nasal 2.0L Cannula 01/31 08 97.4 71 22 140/70 98 Nasal 2.0L Cannula 01/31 0625 75 138/66 01/30 2314 98.3 76 18 146/62 95 Room Air 01/30 2145 82 146/62 01/30 2145 82 146/62 Intake & Output 01/31 1600 01/31 0800 01/31 0000 Intake Total 140 240 780 Output Total 480 650 650 Balance -340 -410 130 Intake, IV 20 300 Intake, Oral 120 240 480 Number 0 Bowel Movements Output, Stool 0 Output, Urine 480 650 650 Patient 136 lb Weight Physical Exam: Alert and oriented x3. Attention and concentration normal. Language fluent with good comprehension. EOMI, REBEKAH, no nystagmus, face symemtric, V1-V3 sensation if normal, tongue midline, uvula raises equally in midline, VF are intatct, hearing is normal, TPZ and SCM strong. Left side strength is intact. On the right side there is mild drift, arm is 4/5 in strength, however, leg is 2/5 proximally and stronger distally. Reflexes increased on right side. No sensory findings. Toe upgoing on right. FNF normal. Gait deferred due to weakness. Last 48 Hours of Lab Results: Laboratory Tests 01/31 01/31 1010 0655 Chemistry Sodium (137 - 145 mmol/L) 133 L Potassium (3.5 - 5.1 mmol/L) 5.0 Chloride (98 - 107 mmol/L) 95 L Carbon Dioxide (22 - 30 mmol/L) 32 H Anion Gap (5 - 16) 6 BUN (9 - 20 mg/dL) 19 Creatinine (0.7 - 1.2 mg/dL) 0.8 Estimated GFR (>60 ml/min) > 60 Glucose (65 - 99 mg/dL) 135 H Calcium (8.4 - 10.2 mg/dL) 9.2 Phosphorus (2.5 - 4.5 mg/dL) 3.4 Magnesium (1.6 - 2.3 mg/dL) 1.8 Total Bilirubin (0.2 - 1.3 mg/dL) 0.8 AST (17 - 59 U/L) 22 ALT (21 - 72 U/L) 35 Albumin (3.5 - 5.0 g/dL) 3.8 Coagulation PT (9.4 - 12.5 SEC) 13.3 H INR (0.90 - 1.17) 1.27 H Hematology CBC w Diff NO MAN DIFF REQ WBC (4.8 - 10.8 /CUMM) 9.2 RBC (4.70 - 6.10 /CUMM) 3.99 L Hgb (14.0 - 18.0 G/DL) 12.3 L Hct (42 - 52 %) 36.6 L MCV (80.0 - 94.0 FL) 91.9 MCH (27.0 - 31.0 PG) 31.0 RDW (11.5 - 14.5 %) 14.3 Plt Count (130 - 400 /CUMM) 170 MPV (7.4 - 10.4 FL) 7.9 Gran % (42.2 - 75.2 %) 67.3 Lymphocytes % (20.5 - 51.1 %) 20.5 Monocytes % (1.7 - 9.3 %) 9.8 H Eosinophils % (0 - 5 %) 1.6 Basophils % (0.0 - 2.0 %) 0.8 Absolute Granulocytes (1.4 - 6.5 /CUMM) 6.2 Absolute Lymphocytes (1.2 - 3.4 /CUMM) 1.9 Absolute Monocytes (0.10 - 0.60 /CUMM) 0.9 H Absolute Eosinophils (0.0 - 0.7 /CUMM) 0.1 Absolute Basophils (0.0 - 0.2 /CUMM) 0.1 PUBS MCHC (33.0 - 37.0 G/DL) 33.7 01/30 1152 Chemistry Sodium (137 - 145 mmol/L) 137 Potassium (3.5 - 5.1 mmol/L) 4.6 Chloride (98 - 107 mmol/L) 96 L Carbon Dioxide (22 - 30 mmol/L) 34 H Anion Gap (5 - 16) 7 BUN (9 - 20 mg/dL) 20 Creatinine (0.7 - 1.2 mg/dL) 0.8 Estimated GFR (>60 ml/min) > 60 BUN/Creatinine Ratio (7 - 25 %) 25.0 Glucose (65 - 99 mg/dL) 123 H Calcium (8.4 - 10.2 mg/dL) 9.6 Magnesium (1.6 - 2.3 mg/dL) 1.9 Total Bilirubin (0.2 - 1.3 mg/dL) 0.7 AST (17 - 59 U/L) 24 ALT (21 - 72 U/L) 32 Alkaline Phosphatase (< 127 U/L) 76 Troponin I (<0.11 ng/ml) < 0.01 Total Protein (6.3 - 8.2 g/dL) 6.4 Albumin (3.5 - 5.0 g/dL) 4.0 Globulin (1.9 - 4.2 gm/dL) 2.4 Albumin/Globulin Ratio (1.1 - 2.2 %) 1.7 Coagulation PT (9.4 - 12.5 SEC) 13.3 H INR (0.90 - 1.17) 1.27 H Hematology CBC w Diff NO MAN DIFF REQ WBC (4.8 - 10.8 /CUMM) 9.0 RBC (4.70 - 6.10 /CUMM) 4.11 L Hgb (14.0 - 18.0 G/DL) 12.6 L Hct (42 - 52 %) 37.5 L MCV (80.0 - 94.0 FL) 91.3 MCH (27.0 - 31.0 PG) 30.7 RDW (11.5 - 14.5 %) 14.5 Plt Count (130 - 400 /CUMM) 162 MPV (7.4 - 10.4 FL) 7.7 Gran % (42.2 - 75.2 %) 69.8 Lymphocytes % (20.5 - 51.1 %) 16.7 L Monocytes % (1.7 - 9.3 %) 10.7 H Eosinophils % (0 - 5 %) 2.0 Basophils % (0.0 - 2.0 %) 0.8 Absolute Granulocytes (1.4 - 6.5 /CUMM) 6.3 Absolute Lymphocytes (1.2 - 3.4 /CUMM) 1.5 Absolute Monocytes (0.10 - 0.60 /CUMM) 1.0 H Absolute Eosinophils (0.0 - 0.7 /CUMM) 0.2 Absolute Basophils (0.0 - 0.2 /CUMM) 0.1 PUBS MCHC (33.0 - 37.0 G/DL) 33.7 Imaging/Other Studies: FINDINGS: There is subdural hematoma layering along the falx and extending along the left tentorial leaflet. This measures approximately 1.2 cm in maximal thickness along the falx above the level of the ventricles. Additional subdural hematoma is seen along the left cerebral convexity, measuring up to 0.5 cm at the level of the lateral ventricles. Due to underlying volume loss, there is minimal local mass effect. No midline shift. No evidence of territorial infarction. Sorto to white matter differentiation is well preserved. No intraparenchymal hemorrhage or intraventricular hemorrhage is visualized. No hydrocephalus. Moderate underlying volume loss. Mild patchy periventricular and deep white matter hypoattenuation is consistent with small vessel ischemic change. The osseous structures and soft tissues are normal. The mastoid air cells and visualized portions of the paranasal sinuses are well aerated. IMPRESSION: Subdural hematoma with blood products along the falx and left tentorial leaflet and extending along the left cerebral convexity. No significant mass effect. No midline shift. Assessment/Plan Assessment: 89 year old with a traumatic subdural hemorrhage, fortunately off anti- coagulation or anti-platelets. Right leg weakness is likely due to some mass effect over superior parafalcine tissue representing the proximal leg homunculus. Recommendations: 1. Agree with use of Fioricet for headache. 2. Consider stopping SSRI as SSRIs have anti-platelet effects. 3. Monitor neurochecks. 4. PT/OT for leg strengthening and eventually as outpt. Consult Acknowledgment - Thank you for your consult request.
--- NOTE | 2017-01-31 22:38 | NUR ---
DR COLE CALLED FOR UPDATE ON PATIENT. SHE IS CONCERNED ABOUT STEADILY DECREASING SODIUM LEVEL. SHE RECOMMENDS THAT SODIUM BE REPEATED EVERY SHIFT AND THAT HE BE STARTED ON 2GM NACL TABLETS TID TO PREVENT FURTHER DROP AND RESULTANT COMPLICATIONS. DR MEDRANO NOTIFIED OF DR COLE'S RECOMMENDATIONS.
[2017-02-01] VITALS: BP 103/59
[2017-02-01 06:22] LABS: ABSOLUTE BASOPHIL COUNT 0.1 /CUMM (0.0-0.2); ABSOLUTE EOSINOPHIL COUNT 0.2 /CUMM (0.0-0.7); ABSOLUTE GRANULOCYTE CT 6.6 /CUMM (1.4-6.5); ABSOLUTE LYMPH COUNT 1.4 /CUMM (1.2-3.4); ABSOLUTE MONOCYTE COUNT 1.1 /CUMM (0.10-0.60); BASOPHIL % 0.7 % (0.0-2.0); GRANULOCYTE % 70.8 % (42.2-75.2); HEMATOCRIT 38.1 % (42-52); MEAN CORPUSCULAR HGB 30.9 PG (27.0-31.0); MEAN CORPUSCULAR HGB CONC 33.3 G/DL (33.0-37.0); MEAN CORPUSCULAR VOLUME 92.9 FL (80.0-94.0); MEAN PLATELET VOLUME 8.2 FL (7.4-10.4); PLATELET COUNT 154 /CUMM (130-400); RBC DISTRIBUTION WIDTH 14.9 % (11.5-14.5); RED BLOOD CELL CT 4.11 /CUMM (4.70-6.10); WHITE BLOOD CELL COUNT 9.3 /CUMM (4.8-10.8)
--- NOTE | 2017-02-01 07:25 | PN- Housestaff ---
LIZA ALLEN,[facility] 02/01/17 0725: Subjective Follow-up For: Subdural hematoma Subjective: Patient seen and examined this morning. He was lying in bed in no acute distress, headache have been improved, vitals within normal limits. Remains on 2 L of nasal cannula oxygen setting in mid 90s. Sodium overnight went down to 131 improved to 133, into monitoring along with serum osmolality, in case if Again We'll Start Giving Salt Tablets 2g NaCl TID Review of Systems Constitutional: Reports: see HPI. Objective Last 24 Hrs of Vital Signs/I&O Laboratory Tests 02/01/17 0430: Anion Gap 3 L, Estimated GFR > 60, Glucose 121 H, Serum Osmolality 293, Calcium 9.6, Phosphorus 3.7, Magnesium 2.1, Total Bilirubin 0.6, AST 21, ALT 32, Albumin 3.9, CBC w Diff NO MAN DIFF REQ, RBC 4.11 L, MCV 92.9, MCH 30.9, RDW 14.9 H, MPV 8.2, Gran % 70.8, Lymphocytes % 15.2 L, Monocytes % 11.3 H, Eosinophils % 2.0, Basophils % 0.7, Absolute Granulocytes 6.6 H, Absolute Lymphocytes 1.4, Absolute Monocytes 1.1 H, Absolute Eosinophils 0.2, Absolute Basophils 0.1, PUBS MCHC 33.3 02/01/17 0025: Anion Gap 4 L, Estimated GFR > 60, Glucose 171 H, Calcium 9.5, Phosphorus 3.4, Magnesium 1.9, Total Bilirubin 0.6, AST 19, ALT 39, Albumin 3.8, Urine Osmolality 368, Ur Random Creatinine 37.6, Ur Random Sodium 67, Ur Random Potassium 31.4, Fraction Sodium Excret 1.2 H 01/31/172009: Anion Gap 5, Estimated GFR > 60, Glucose 169 H, Serum Osmolality 293, Calcium 9.1, Phosphorus 3.2, Magnesium 1.8, Total Bilirubin 0.7, AST 21, ALT 31, Albumin 3.8 01/31/17 1010: Anion Gap 6, Estimated GFR > 60, Glucose 135 H, Calcium 9.2, Phosphorus 3.4, Magnesium 1.8, Total Bilirubin 0.8, AST 22, ALT 35, Albumin 3.8, PT 13.3 H, INR 1.27 H Vital Signs Date Time Temp Pulse Resp B/P Pulse O2 O2 Flow FiO2 Ox Delivery Rate 02/01 0400 95 Nasal 2.0L Cannula 02/01 0000 96 Nasal 2.0L Cannula 02/01 0000 97.6 69 21 103/59 96 Nasal 2.0L Cannula 01/31 2201 77 18 113/70 01/31 2201 77 18 113/61 02/01 2000 96 Nasal 2.0L Cannula 01/31 1600 96 Nasal 2.0L Cannula 01/31 1600 99.3 70 15 119/64 96 Nasal 2.0L Cannula 01/31 1200 97 Nasal 2.0L Cannula Intake & Output 02/01 1600 02/01 0800 02/01 0000 Intake Total 0 360 Output Total 250 575 Balance -250 -215 Intake, IV 0 Intake, Oral 0 360 Number 0 Bowel Movements Output, Urine 250 575 Vital Signs Date Time Temp Pulse Resp B/P Pulse O2 O2 Flow FiO2 Ox Delivery Rate 02/01 0400 95 Nasal 2.0L Cannula 02/01 0000 96 Nasal 2.0L Cannula 02/01 0000 97.6 69 21 103/59 96 Nasal 2.0L Cannula 01/311 77 18 113/70 01/31 2201 77 18 113/61 02/01 2000 96 Nasal 2.0L Cannula 01/31 1600 96 Nasal 2.0L Cannula 01/31 1600 99.3 70 15 119/64 96 Nasal 2.0L Cannula 01/31 1200 97 Nasal 2.0L Cannula Intake & Output 02/01 1600 02/01 0800 02/01 0000 Intake Total 0 360 Output Total 250 575 Balance -250 -215 Intake, IV 0 Intake, Oral 0 360 Number 0 Bowel Movements Output, Urine 250 575 Physical Exam General Appearance: Alert, Oriented X3, Cooperative, No Acute Distress Cardiovascular: Regular Rate, Normal S1, Normal S2, No Murmurs Lungs: Clear to Auscultation, Normal Air Movement Abdomen: Normal Bowel Sounds, Soft, No Tenderness Neurological: Normal Speech, Strength at 5/5 X4 Ext, Normal Tone, Sensation Intact, Cranial Nerves 3-12 NL Extremities: No Clubbing, No Cyanosis, No Edema Current Medications: Current Medications Sig/Rossana Start time Last Medication Dose Route Stop Time Status Admin Acetaminophen 1,000 MG ONCE ONE 02/01 730 DC 02/01 N/A 1 UNIT IV 02/01 0744 0744 Acetaminophen 650 MG Q6P PRN 01/30 1730 AC PO Acetaminophen/ 1 TAB Q4P PRN 01/31 0845 AC 01/31 Butalbital/Caffeine PO 1639 Atorvastatin Calcium 40 MG 1700 01/31 1700 AC 01/31 PO 1646 Carvedilol 12.5 MG BID 01/30 2200 AC 01/31 PO 2201 Cholecalciferol 1,000 IU DAILY 01/31 1000 AC 01/31 PO 0932 Droxidopa 600 MG TIDAC 01/31 1700 AC 02/01 PO 0811 Droxidopa 600 MG TIDAC 01/31 1200 DC PO Droxidopa 600 MG TIDAC 01/31 1200 DC 01/31 PO 01/31 1201 1306 Droxidopa 600 MG TIDAC 01/30 1815 DC 01/31 PO 0927 Famotidine 20 MG BID 01/30 2200 AC 01/31 PO 2201 Magnesium Oxide 400 MG BID 01/30 2200 AC 01/31 PO 2201 Multivitamins 1 TAB QPM 01/30 2200 AC 01/31 Therapeutic PO 2200 Ranolazine 500 MG BID 01/30 2200 AC 01/31 PO 2201 Sertraline HCl 100 MG DAILY 01/31 1000 AC 01/31 PO 0931 Last 24 Hrs of Lab/Cesario Results Last 24 Hrs of Labs/Mics: Laboratory Tests 02/01/17 0430: Anion Gap 3 L, Estimated GFR > 60, Glucose 121 H, Serum Osmolality 293, Calcium 9.6, Phosphorus 3.7, Magnesium 2.1, Total Bilirubin 0.6, AST 21, ALT 32, Albumin 3.9, CBC w Diff NO MAN DIFF REQ, RBC 4.11 L, MCV 92.9, MCH 30.9, RDW 14.9 H, MPV 8.2, Gran % 70.8, Lymphocytes % 15.2 L, Monocytes % 11.3 H, Eosinophils % 2.0, Basophils % 0.7, Absolute Granulocytes 6.6 H, Absolute Lymphocytes 1.4, Absolute Monocytes 1.1 H, Absolute Eosinophils 0.2, Absolute Basophils 0.1, PUBS MCHC 33.3 02/01/17 0025: Anion Gap 4 L, Estimated GFR > 60, Glucose 171 H, Calcium 9.5, Phosphorus 3.4, Magnesium 1.9, Total Bilirubin 0.6, AST 19, ALT 39, Albumin 3.8, Urine Osmolality 368, Ur Random Creatinine 37.6, Ur Random Sodium 67, Ur Random Potassium 31.4, Fraction Sodium Excret 1.2 H 01/31/17 2010: Anion Gap 5, Estimated GFR > 60, Glucose 169 H, Serum Osmolality 293, Calcium 9.1, Phosphorus 3.2, Magnesium 1.8, Total Bilirubin 0.7, AST 21, ALT 31, Albumin 3.8 01/31/17 1010: Anion Gap 6, Estimated GFR > 60, Glucose 135 H, Calcium 9.2, Phosphorus 3.4, Magnesium 1.8, Total Bilirubin 0.8, AST 22, ALT 35, Albumin 3.8, PT 13.3 H, INR 1.27 H Assessment/Plan Assessment: Patient is an 89-year-old male with a past medical history of CAD status post CABG,ICD, orthostatic hypotension on Droxidopa, history of multiple falls including one episode that resulted in subdural hematoma(requiring [place] admission with no surgical intervention required) presents with c/o hedache with hx of mechanical fall 4 days ago. Vital signs -temperature 98.3, pulse 69, respiratory rate 18, blood pressure 104 /53, SPO2 95% on room air CT scan of the head -Subdural hematoma with blood products along the falx and left tentorial leaflet and extending along the left cerebral convexity. No significant mass effect. No midline shift. Plan - Subdural hematoma: Patient presented with headache status post fall. CT scan done upon presentation showed a dense of subdural hematoma with blood products along the falx and left tentorial leaflet and extending along the left cerebral convexity. He continued to have headache along with having neck pain and stiffness, repeat CT head was done which showed stable subdural hematoma, CT cervical and not show any evidence of any fracture. -He was admitted to ICU for close monitoring, neuro checks every, neck stiffness, nausea, vomiting repeat CT done showed stable subdural hematoma. -Ever since admission his headache has been improving, we have been avoiding narcotics, currently patient is on Fioricet which he has been having good response to. -Patient has been oriented times person, neuro checks did not reveal any focal neurological symptoms signs. -Low-dose vitamin K was administered yesterday as per neurosurgery recommendations. -Hyponatremia- last 24 hours sodium went down to 131, which has improved to 133, will continue to monitor sodium every shift along with serum osmolality, in regards to his subdural hematoma, have to strictly monitor him for SIADH, in case his sodium goes down. The patient on sodium tablets 2 g 3 times a day, is significantly nor can also consider starting patient on hypertonic saline. Diet -heart healthy diet, tolerating well no nausea no vomiting. DVT prophylaxis - ALPS Code status -DNR/DNI Problem List: 1. Acute subdural hematoma 2. Headache Pain Ratin Pain Location: Headache Pain Goal: Remain pain free Pain Plan: fiorocet Tylenol Tomorrow's Labs & Rationales: ICU bundle CBC is monitoring insetting of subdural hematoma DVT/Prophylaxis: mechanical GAUDENCIO LEA MD 02/01/17 1155: Attending MD Review Statement Attending Statement Attending MD Statement: examined this patient, discuss w/resident/PA/MOLD YARN SUPERVISOR, agreed w/resident/PA/MOLD YARN SUPERVISOR, reviewed EMR data (avail) Attending Assessment/Plan: Patient doing well, headache improved. Repeat head CT shows no change. Stable vitals. Will continue to follow neurosurgery recommendations, continue frequent neuro checks, salt tabs, monitor sodium, continue in ICU for one more day.
--- NOTE | 2017-02-01 07:55 | PN- Neurosurgical ---
Subjective Subjective: Feeling better this am. JOSÉ, neck pain improved. Objective Vital Signs and I&Os Vital Signs Date Time Temp Pulse Resp B/P Pulse O2 O2 Flow FiO2 Ox Delivery Rate 02/01 0400 95 Nasal 2.0L Cannula 02/01 0000 96 Nasal 2.0L Cannula 02/01 0000 97.6 69 21 103/59 96 Nasal 2.0L Cannula 01/31 2201 77 18 113/70 01/31 2201 77 18 113/61 01/31 2000 96 Nasal 2.0L Cannula 01/31 1600 96 Nasal 2.0L Cannula 01/31 1600 99.3 70 15 119/64 96 Nasal 2.0L Cannula 01/31 1200 97 Nasal 2.0L Cannula 01/31 0932 69 104/53 01/31 0931 75 104/53 01/31 0800 97 Nasal 2.0L Cannula 01/31 0800 97.4 71 22 140/70 98 Nasal 2.0L Cannula Intake & Output 02/01 0800 02/01 0000 01/31 1600 01/31 0800 01/31 0000 01/30 1600 Intake Total 0 360 140 240 780 Output Total 250 575 480 650 650 Balance -250 -215 -340 -410 130 Intake, IV 0 20 300 Intake, Oral 0 360 120 240 480 Number 0 0 Bowel Movements Output, Stool 0 Output, Urine 250 575 480 650 650 Patient 61.689 kg 61.235 kg Weight Physical Exam: AF, VSS Pt awake and alert conversive and appropriate JOSÉ improved, neck pain better this am moves all 4 extrem to command and with good strength face sym, no drift Current Medications: Current Medications Sig/Rossana Start time Last Medication Dose Route Stop Time Status Admin Acetaminophen 1,000 MG ONCE ONE 02/01 0730 DC N/A 1 UNIT IV 02/01 0744 Acetaminophen 650 MG Q6P PRN 01/30 1730 AC PO Acetaminophen/ 1 TAB Q4P PRN 01/31 0845 AC 01/31 Butalbital/Caffeine PO 1639 Atorvastatin Calcium 40 MG 1700 01/31 1700 AC 01/31 PO 1646 Carvedilol 12.5 MG BID 01/30 2200 AC 01/31 PO 2201 Cholecalciferol 1,000 IU DAILY 01/31 1000 AC 01/31 PO 0932 Droxidopa 600 MG TIDAC 01/31 1700 AC 01/31 PO 1647 Droxidopa 600 MG TIDAC 01/31 1200 DC PO Droxidopa 600 MG TIDAC 01/31 1200 DC 01/31 PO 01/31 1201 1306 Droxidopa 600 MG TIDAC 01/30 1815 DC 01/31 PO 0927 Famotidine 20 MG BID 01/30 2200 AC 01/31 PO 220 Magnesium Oxide 400 MG BID 01/30 2200 AC 01/31 PO 220 Multivitamins 1 TAB QPM 01/30 2200 AC 01/31 Therapeutic PO 2199 Ondansetron HCl 4 MG ONCE ONE 01/31 930 DC 01/31 IV 01/31 0931 0931 Phytonadione 5 MG ONCE ONE 01/31 0845 DC 01/31 SC 01/31 0846 0918 Ranolazine 500 MG BID 01/30 2200 AC 01/31 PO 220 Sertraline HCl 100 MG DAILY 01/31 1000 AC 01/31 PO 0931 Results Last 48 Hours of Labs: Laboratory Tests 02/01 02/01 01/31 0430 0025 2009 Chemistry Sodium (137 - 145 mmol/L) 133 L 131 L 131 L Potassium (3.5 - 5.1 mmol/L) 5.3 H 4.5 4.8 Chloride (98 - 107 mmol/L) 94 L 95 L 93 L Carbon Dioxide (22 - 30 mmol/L) 35 H 32 H 32 H Anion Gap (5 - 16) 3 L 4 L 5 BUN (9 - 20 mg/dL) 23 H 21 H 21 H Creatinine (0.7 - 1.2 mg/dL) 0.9 0.9 0.9 Estimated GFR (>60 ml/min) > 60 > 60 > 60 Glucose (65 - 99 mg/dL) 121 H 171 H 169 H Serum Osmolality (285 - 295 MOSM/KG) 293 Calcium (8.4 - 10.2 mg/dL) 9.6 9.5 9.1 Phosphorus (2.5 - 4.5 mg/dL) 3.7 3.4 3.2 Magnesium (1.6 - 2.3 mg/dL) 2.1 1.9 1.8 Total Bilirubin (0.2 - 1.3 mg/dL) 0.6 0.6 0.7 AST (17 - 59 U/L) 21 19 21 ALT (21 - 72 U/L) 32 39 31 Albumin (3.5 - 5.0 g/dL) 3.9 3.8 3.8 Hematology CBC w Diff NO MAN DIFF REQ WBC (4.8 - 10.8 /CUMM) 9.3 RBC (4.70 - 6.10 /CUMM) 4.11 L Hgb (14.0 - 18.0 G/DL) 12.7 L Hct (42 - 52 %) 38.1 L MCV (80.0 - 94.0 FL) 92.9 MCH (27.0 - 31.0 PG) 30.9 RDW (11.5 - 14.5 %) 14.9 H Plt Count (130 - 400 /CUMM) 154 MPV (7.4 - 10.4 FL) 8.2 Gran % (42.2 - 75.2 %) 70.8 Lymphocytes % (20.5 - 51.1 %) 15.2 L Monocytes % (1.7 - 9.3 %) 11.3 H Eosinophils % (0 - 5 %) 2.0 Basophils % (0.0 - 2.0 %) 0.7 Absolute Granulocytes (1.4 - 6.5 /CUMM) 6.6 H Absolute Lymphocytes (1.2 - 3.4 /CUMM) 1.4 Absolute Monocytes (0.10 - 0.60 /CUMM) 1.1 H Absolute Eosinophils (0.0 - 0.7 /CUMM) 0.2 Absolute Basophils (0.0 - 0.2 /CUMM) 0.1 PUBS MCHC (33.0 - 37.0 G/DL) 33.3 Urines Urine Osmolality (300 - 1000 MOSM/KG) 368 Ur Random Creatinine (mg/dL) 37.6 Ur Random Sodium (30 - 90 mmol/L) 67 Ur Random Potassium (mmol/L) 31.4 Fraction Sodium Excret (<1% %) 1.2 H 01/31 01/31 1010 0655 Chemistry Sodium (137 - 145 mmol/L) 133 L Potassium (3.5 - 5.1 mmol/L) 5.0 Chloride (98 - 107 mmol/L) 95 L Carbon Dioxide (22 - 30 mmol/L) 32 H Anion Gap (5 - 16) 6 BUN (9 - 20 mg/dL) 19 Creatinine (0.7 - 1.2 mg/dL) 0.8 Estimated GFR (>60 ml/min) > 60 Glucose (65 - 99 mg/dL) 135 H Calcium (8.4 - 10.2 mg/dL) 9.2 Phosphorus (2.5 - 4.5 mg/dL) 3.4 Magnesium (1.6 - 2.3 mg/dL) 1.8 Total Bilirubin (0.2 - 1.3 mg/dL) 0.8 AST (17 - 59 U/L) 22 ALT (21 - 72 U/L) 35 Albumin (3.5 - 5.0 g/dL) 3.8 Coagulation PT (9.4 - 12.5 SEC) 13.3 H INR (0.90 - 1.17) 1.27 H Hematology CBC w Diff NO MAN DIFF REQ WBC (4.8 - 10.8 /CUMM) 9.2 RBC (4.70 - 6.10 /CUMM) 3.99 L Hgb (14.0 - 18.0 G/DL) 12.3 L Hct (42 - 52 %) 36.6 L MCV (80.0 - 94.0 FL) 91.9 MCH (27.0 - 31.0 PG) 31.0 RDW (11.5 - 14.5 %) 14.3 Plt Count (130 - 400 /CUMM) 170 MPV (7.4 - 10.4 FL) 7.9 Gran % (42.2 - 75.2 %) 67.3 Lymphocytes % (20.5 - 51.1 %) 20.5 Monocytes % (1.7 - 9.3 %) 9.8 H Eosinophils % (0 - 5 %) 1.6 Basophils % (0.0 - 2.0 %) 0.8 Absolute Granulocytes (1.4 - 6.5 /CUMM) 6.2 Absolute Lymphocytes (1.2 - 3.4 /CUMM) 1.9 Absolute Monocytes (0.10 - 0.60 /CUMM) 0.9 H Absolute Eosinophils (0.0 - 0.7 /CUMM) 0.1 Absolute Basophils (0.0 - 0.2 /CUMM) 0.1 PUBS MCHC (33.0 - 37.0 G/DL) 33.7 03 1152 Chemistry Sodium (137 - 145 mmol/L) 137 Potassium (3.5 - 5.1 mmol/L) 4.6 Chloride (98 - 107 mmol/L) 96 L Carbon Dioxide (22 - 30 mmol/L) 34 H Anion Gap (5 - 16) 7 BUN (9 - 20 mg/dL) 20 Creatinine (0.7 - 1.2 mg/dL) 0.8 Estimated GFR (>60 ml/min) > 60 BUN/Creatinine Ratio (7 - 25 %) 25.0 Glucose (65 - 99 mg/dL) 123 H Calcium (8.4 - 10.2 mg/dL) 9.6 Magnesium (1.6 - 2.3 mg/dL) 1.9 Total Bilirubin (0.2 - 1.3 mg/dL) 0.7 AST (17 - 59 U/L) 24 ALT (21 - 72 U/L) 32 Alkaline Phosphatase (< 127 U/L) 76 Troponin I (<0.11 ng/ml) < 0.01 Total Protein (6.3 - 8.2 g/dL) 6.4 Albumin (3.5 - 5.0 g/dL) 4.0 Globulin (1.9 - 4.2 gm/dL) 2.4 Albumin/Globulin Ratio (1.1 - 2.2 %) 1.7 Coagulation PT (9.4 - 12.5 SEC) 13.3 H INR (0.90 - 1.17) 1.27 H Hematology CBC w Diff NO MAN DIFF REQ WBC (4.8 - 10.8 /CUMM) 9.0 RBC (4.70 - 6.10 /CUMM) 4.11 L Hgb (14.0 - 18.0 G/DL) 12.6 L Hct (42 - 52 %) 37.5 L MCV (80.0 - 94.0 FL) 91.3 MCH (27.0 - 31.0 PG) 30.7 RDW (11.5 - 14.5 %) 14.5 Plt Count (130 - 400 /CUMM) 162 MPV (7.4 - 10.4 FL) 7.7 Gran % (42.2 - 75.2 %) 69.8 Lymphocytes % (20.5 - 51.1 %) 16.7 L Monocytes % (1.7 - 9.3 %) 10.7 H Eosinophils % (0 - 5 %) 2.0 Basophils % (0.0 - 2.0 %) 0.8 Absolute Granulocytes (1.4 - 6.5 /CUMM) 6.3 Absolute Lymphocytes (1.2 - 3.4 /CUMM) 1.5 Absolute Monocytes (0.10 - 0.60 /CUMM) 1.0 H Absolute Eosinophils (0.0 - 0.7 /CUMM) 0.2 Absolute Basophils (0.0 - 0.2 /CUMM) 0.1 PUBS MCHC (33.0 - 37.0 G/DL) 33.7 Assessment/Plan Assessment/Plan Pt stable s/p CHI with SDH. He developed increasing hyponatremia yest, now slightly better but at risk SIADH vs LOCATION MAN after head injury. Rec: -qshift Na levels, if decreases, would give 2g NaCl tabs tid. Given volume status, more likely to be LOCATION MAN than SIADH but serum osm/urine osm would help to determine. -consider holding the sertraline which could contribute to hyponatremia -cont close neurologic monitoring -no need for additional CT unless change in clinical status warrants it -call with questions -PT, OOB w/ mark anthony to begin mobilization Attending MD Review Statement Attending Statement Attending MD Statement: examined this patient, discuss w/resident/PA/SALES CONTRACTS ANALYST, discussed w/nursing
[2017-02-01 08:00] VITALS: BP 108/68
--- NOTE | 2017-02-01 11:20 | NUR ---
Patient is alert and oriented x's 3, can get confused at night but it easily reoriented. He can move all extremities and follow commands, Right hand grasp and pedal push is slightly weaker than left. NIH-0. NSR on tele monitor, HR= 60-70's. SBP: 110-120's and pt denies chest pain. On room air, lungs clear and diminished at the bases. O2 sats 94-95%. Abdomen is soft non tender with + bowel sounds. Tolerating po well and is a set up for meals. He is using the urinal to void- clear yellow urine. PT eval ordered. Skin appears intact- An eccymotic area is noted to the right hip s\p fall prior to admission. IV tylenol was previously given for a headache. Pt currently denies pain at this time. Vitals are stable. Pts son at the bedside and updated on POC. Labs drawn at 1000 per order. Will continue to closely monitor patient.
--- NOTE | 2017-02-01 15:33 | NUR ---
ASSUMED CARE OF PATIENT. PATIENT AWAKE AND ALERT ORX3 SITTING IN CHAIR. REBEKAH WITH MILD HEADACHE OF 2/10. REBEKAH, MOVES ALL EXTREMITIES BUT HAND SPUDDER AND PEDAL PUSH WEAKER ON RIGHT THEN LEFT. LUNGS CLEAR SAT 94% ON ROOM AIR. MONITOR NSR RATE IN 70'S. ABD SOFT NON TENDER WITH GOOD BOWEL SOUNDS. VOIDING IN URINAL. SKIN INTACT. IV TO LAC INTACT.
[2017-02-01 16:00] VITALS: BP 114/70
[2017-02-02] VITALS: BP 120/70
[2017-02-02 05:37] LABS: ABSOLUTE BASOPHIL COUNT 0.1 /CUMM (0.0-0.2); ABSOLUTE EOSINOPHIL COUNT 0.2 /CUMM (0.0-0.7); ABSOLUTE GRANULOCYTE CT 7.2 /CUMM (1.4-6.5); ABSOLUTE LYMPH COUNT 1.5 /CUMM (1.2-3.4); ABSOLUTE MONOCYTE COUNT 0.9 /CUMM (0.10-0.60); BASOPHIL % 0.7 % (0.0-2.0); EOSINOPHIL % 1.7 % (0-5); GRANULOCYTE % 73.2 % (42.2-75.2); HEMATOCRIT 35.9 % (42-52); MEAN CORPUSCULAR HGB 30.8 PG (27.0-31.0); MEAN CORPUSCULAR HGB CONC 33.3 G/DL (33.0-37.0); MEAN CORPUSCULAR VOLUME 92.7 FL (80.0-94.0); PLATELET COUNT 152 /CUMM (130-400); RBC DISTRIBUTION WIDTH 14.6 % (11.5-14.5); RED BLOOD CELL CT 3.88 /CUMM (4.70-6.10); WHITE BLOOD CELL COUNT 9.8 /CUMM (4.8-10.8)
--- NOTE | 2017-02-02 05:57 | PN- Neurosurgical ---
Subjective Subjective: The patient was seen this morning. He reports having a significant throbbing headache which she describes as bandlike in nature across his forhead. He had no other complaints the current time and denied any visual changes, numbness, tingling, or weakness. Objective Vital Signs and I&Os Vital Signs Date Time Temp Pulse Resp B/P Pulse O2 O2 Flow FiO2 Ox Delivery Rate 02/02 0400 95 Room Air 02/02 0000 98.0 72 16 120/70 94 Room Air 02/01 2131 70 18 105/70 02/01 2130 70 18 105/70 02/01 1600 94 Room Air 02/01 1600 98.0 72 18 114/70 94 Room Air 02/01 1200 94 Room Air 02/01 0953 73 118/64 02/01 0953 73 115/64 02/01 0800 97.7 72 18 108/68 94 Room Air 02/01 0800 94 Room Air Intake & Output 02/02 0800 02/02 0000 02/01 1600 02/01 0800 02/01 0000 01/31 1600 Intake Total 330 580 0 360 140 Output Total 500 600 250 575 480 Balance -170 -20 -250 -215 -340 Intake, IV 100 0 20 Intake, Oral 330 480 0 360 120 Number 0 Bowel Movements Output, Stool 0 Output, Urine 500 600 250 575 480 Patient 136 lb Weight Physical Exam: Gen.: Alert and in no obvious distress Skin: Warm and dry Neuro: Patient is alert and oriented 3, GCS 15 and nonfocal, cranial nerves are grossly intact Patient was all 4 extremities with equal strength and follows commands appropriately Extremities: Bilateral lower extremities are warm without calf tenderness. Assessment/Plan Assessment/Plan Assessment: 89-year-old male with a chronic subdural hematoma. The patient is experiencing this morning for which she was medicated. His physical exam remains nonfocal. Recommendations: Follow-up morning laboratory studies paying close attention to sodium Continue to monitor neuro exam GI and DVT prophylaxis Patient may continue with a regular diet PRN pain medications for headache Continue with sodium supplementation
--- NOTE | 2017-02-02 07:47 | PN- Housestaff ---
LIZA ALLEN,[facility] 02/02/17 0747: Subjective Follow-up For: Subdural hematoma Subjective: Patient seen and examined this morning. He was lying in bed in no acute distress, headache have been improved, vitals within normal limits. Remains on 2 L of nasal cannula oxygen setting in mid 90s. Sodium overnight went down to 131 improved to 133, Salt Tablets 2g NaCl TID given Review of Systems Constitutional: Denies: chills, fever. Cardiovascular: Denies: chest pain, palpitations. Respiratory: Denies: cough, short of breath, sputum production. Gastrointestinal: Denies: abdominal pain, constipation, diarrhea, nausea, vomiting. Genitourinary: Denies: dysuria, frequency. Objective Last 24 Hrs of Vital Signs/I&O Laboratory Tests 02/02/17 0500: Urine Osmolality Cancelled 02/02/17 0440: Anion Gap 6, Estimated GFR > 60, Glucose 139 H, Serum Osmolality 297 H, Calcium 9.2, Phosphorus 3.0, Magnesium 1.9, Total Bilirubin 0.6, AST 19, ALT 29, Albumin 3.6, CBC w Diff NO MAN DIFF REQ, RBC 3.88 L, MCV 92.7, MCH 30.8, RDW 14.6 H, MPV 8.0, Gran % 73.2, Lymphocytes % 15.4 L, Monocytes % 9.0, Eosinophils % 1.7, Basophils % 0.7, Absolute Granulocytes 7.2 H, Absolute Lymphocytes 1.5, Absolute Monocytes 0.9 H, Absolute Eosinophils 0.2, Absolute Basophils 0.1, PUBS MCHC 33.3 02/02/17 0020: 02/01/17 1810: Serum Osmolality 294, Urine Osmolality 565 02/01/17 1200: Serum Osmolality Cancelled 02/01/17 1005: Serum Osmolality 296 H 02/01/17 1005: Anion Gap 4 L, Estimated GFR > 60, Glucose 236 H, Calcium 9.3, Phosphorus 3.3, Magnesium 1.9, Total Bilirubin 0.7, AST 19, ALT 28, Albumin 3.8 Vital Signs Date Time Temp Pulse Resp B/P Pulse O2 O2 Flow FiO2 Ox Delivery Rate 02/02 08 70 110/60 02/02 0828 70 110/60 02/02 0800 98.0 67 18 110/60 94 Room Air 02/02 0400 95 Room Air 02/02 0000 98.0 72 16 120/70 94 Room Air 02/01 2131 70 18 105/70 02/01 2130 70 18 105/70 02/01 1600 94 Room Air 02/01 1600 98.0 72 18 114/70 94 Room Air 02/01 1200 94 Room Air 02/01 0953 73 118/64 02/01 0953 73 115/64 Intake & Output 02/02 1600 02/02 0800 02/02 0000 Intake Total 220 330 Output Total 500 500 Balance -280 -170 Intake, Oral 220 330 Number 0 Bowel Movements Output, Urine 500 500 Vital Signs Date Time Temp Pulse Resp B/P Pulse O2 O2 Flow FiO2 Ox Delivery Rate 02/02 0829 70 110/60 02/02 0828 70 110/60 02/02 0800 98.0 67 18 110/60 94 Room Air 02/02 0400 95 Room Air 02/02 0000 98.0 72 16 120/70 94 Room Air 02/01 2131 70 18 105/70 02/01 2130 70 18 105/70 02/01 1600 94 Room Air 02/01 1600 98.0 72 18 114/70 94 Room Air 02/01 1200 94 Room Air 02/01 0953 73 118/64 02/01 0953 73 115/64 Intake & Output 02/02 1600 02/02 0800 02/02 0000 Intake Total 220 330 Output Total 500 500 Balance -280 -170 Intake, Oral 220 330 Number 0 Bowel Movements Output, Urine 500 500 Physical Exam General Appearance: Alert, Oriented X3, Cooperative, No Acute Distress Cardiovascular: Regular Rate, Normal S1, Normal S2, No Murmurs Lungs: Clear to Auscultation, Normal Air Movement Abdomen: Normal Bowel Sounds, Soft, No Tenderness Extremities: No Clubbing, No Cyanosis, No Edema Current Medications: Current Medications Sig/Rossana Start time Last Medication Dose Route Stop Time Status Admin Acetaminophen 650 MG Q6P PRN 01/30 1730 AC 02/02 PO 0446 Acetaminophen/ 1 TAB Q4P PRN 01/31 0845 AC 02/02 Butalbital/Caffeine PO 0834 Atorvastatin Calcium 40 MG 1700 01/31 1700 AC 02/01 PO 1633 Carvedilol 12.5 MG BID 01/30 2200 AC 02/02 PO 0828 Cholecalciferol 1,000 IU DAILY 01/31 1000 AC 02/02 PO 0829 Droxidopa 600 MG TIDAC 01/31 1700 AC 02/02 PO 0829 Famotidine 20 MG BID 01/30 2200 AC 02/02 PO 0829 Magnesium Oxide 400 MG ONE ONE 02/02 0830 DC 02/02 PO 02/02 0831 0837 Magnesium Oxide 400 MG BID 01/30 2200 AC 02/02 PO 0827 Multivitamins 1 TAB QPM 01/30 2200 AC 02/01 Therapeutic PO 2130 Ranolazine 500 MG BID 01/30 2200 AC 02/02 PO 0829 Sertraline HCl 100 MG DAILY 01/31 1000 DC 02/01 PO 0953 Sodium Chloride 2,000 MG TID 02/01 1152 AC 02/02 PO 0827 Last 24 Hrs of Lab/Cesario Results Last 24 Hrs of Labs/Mics: Laboratory Tests 02/02/17 0500: Urine Osmolality Cancelled 02/02/17 0440: Anion Gap 6, Estimated GFR > 60, Glucose 139 H, Serum Osmolality 297 H, Calcium 9.2, Phosphorus 3.0, Magnesium 1.9, Total Bilirubin 0.6, AST 19, ALT 29, Albumin 3.6, CBC w Diff NO MAN DIFF REQ, RBC 3.88 L, MCV 92.7, MCH 30.8, RDW 14.6 H, MPV 8.0, Gran % 73.2, Lymphocytes % 15.4 L, Monocytes % 9.0, Eosinophils % 1.7, Basophils % 0.7, Absolute Granulocytes 7.2 H, Absolute Lymphocytes 1.5, Absolute Monocytes 0.9 H, Absolute Eosinophils 0.2, Absolute Basophils 0.1, PUBS MCHC 33.3 02/02/17 0020: 02/01/17 1810: Serum Osmolality 294, Urine Osmolality 565 02/01/17 1200: Serum Osmolality Cancelled 02/01/17 1005: Serum Osmolality 296 H 02/01/17 1005: Anion Gap 4 L, Estimated GFR > 60, Glucose 236 H, Calcium 9.3, Phosphorus 3.3, Magnesium 1.9, Total Bilirubin 0.7, AST 19, ALT 28, Albumin 3.8 Assessment/Plan Assessment: Patient is an 89-year-old male with a past medical history of CAD status post CABG,ICD, orthostatic hypotension on Droxidopa, history of multiple falls including one episode that resulted in subdural hematoma(requiring [place] admission with no surgical intervention required) presents with c/o hedache with hx of mechanical fall 4 days ago. Vital signs -temperature 98.3, pulse 69, respiratory rate 18, blood pressure 104 /53, SPO2 95% on room air CT scan of the head -Subdural hematoma with blood products along the falx and left tentorial leaflet and extending along the left cerebral convexity. No significant mass effect. No midline shift. Plan - Subdural hematoma: Patient presented with headache status post fall. CT scan done upon presentation showed a /dense of subdural hematoma with blood products along the falx and left tentorial leaflet and extending along the left cerebral convexity. He continued to have headache along with having neck pain and stiffness, repeat CT head was done which showed stable subdural hematoma, CT cervical and not show any evidence of any fracture. -He was admitted to ICU for close monitoring, neuro checks every, neck stiffness, nausea, vomiting repeat CT done showed stable subdural hematoma. -Ever since admission his headache has been improving, we have been avoiding narcotics, currently patient is on Fioricet which he has been having good response to. -Patient has been oriented times person, neuro checks did not reveal any focal neurological symptoms signs. -Low-dose vitamin K was administered yesterday as per neurosurgery recommendations. -Hyponatremia-02/02 sodium went down to 131, started on salt tabs, which has improved to 133>>134, will continue to monitor sodium every shift along with serum osmolality, in regards to his subdural hematoma, have to strictly monitor him for SIADH and cerebral salt wasting syndrome Diet -heart healthy diet, tolerating well no nausea no vomiting. DVT prophylaxis - ALPS Code status -DNR/DNI Problem List: 1. Headache 2. Acute subdural hematoma Pain Ratin Pain Location: headache Pain Goal: Remain pain free Pain Plan: Firocet Tomorrow's Labs & Rationales: bep and cbc GAUDENCIO LEA MD 02/02/17 1446: Attending MD Review Statement Attending Statement Attending MD Statement: examined this patient, discuss w/resident/PA/RELATIONS MANAGER, agreed w/resident/PA/RELATIONS MANAGER, reviewed EMR data (avail) Attending Assessment/Plan: Patient is improved. No neurological dysfunction, no complaints except for mild "head pain" (patient denies headache). Sodium improved and now normal. Per resident conversation with neurosurgeon, patient is stable for discharge to STR with otupatient follow up. Will continue home medications, continue salt tabs for 1 week and recheck sodium level on 02/07/17. Follow up with outpatient PCP.
[2017-02-02 08:00] VITALS: BP 110/60
--- NOTE | 2017-02-02 13:47 | Patient Discharge Instructions ---
Discharge Instructions General Discharge Information You were seen/treated for: SUBDURAL HEMATOMA Special Instructions: Please follow up with your PCP within one week of discharge please follow up with nuerology upon discharge. Diet Continue normal diet: Yes Recommended Diet: Regular Acute Coronary Syndrome Inclusion Criteria At DC or during hospital stay patient has or had the following: ACS DIAGNOSIS No Discharge Core Measures Meds if any: Prescribed or Continued at Discharge Meds if any: NOT Prescribed or Continued at Discharge Congestive Heart Failure Inclusion Criteria At DC or during hospital stay patient has or had the following: CHF DIAGNOSIS No Discharge Core Measures Meds if any: Prescribed or Continued at Discharge Meds if any: NOT Prescribed or Continued at Discharge Cerebrovascular accident Inclusion Criteria At DC or during hospital stay patient has or had the following: CVA/TIA Diagnosis No Discharge Core Measures Meds if any: Prescribed or Continued at Discharge Meds if any: NOT Prescribed or Continued at Discharge Venous thromboembolism Inclusion Criteria VTE Diagnosis No VTE Type NONE VTE Confirmed by (Test) NONE Discharge Core Measures - Per Current guidelines, there needs to be overlap - treatment for the first 5 days of Warfarin therapy. - If discharged on Warfarin prior to 5 days of - overlap therapy, the patient will need to be - assessed for post discharge needs including - *Post discharge parental anticoagulation - *Warfarin and/or parental anticoagulation education - *Follow up date to check INR post discharge At least 5 days overlap therapy as Inpatient No Meds if any: Prescribed or Continued at Discharge Note: Overlap Therapy is Warfarin and Anticoagulant Meds if any: NOT Prescribed or Continued at Discharge
[2017-02-02] MEDS ORDERED: BUTALB-ACETAMI1 EACH PO (13:52)
[2017-02-02] MEDS ORDERED: SODIUM CHLORIDE1 G2 PO (14:17)
--- NOTE | 2017-02-02 14:55 | Discharge Summary ---
Visit Information Visit Dates Admission Date: 01/30/17 Discharge Date: 02/03/17 Hospital Course Course Attending Physician: GAUDENCIO LEA MD Primary Care Physician: CATRINA ALLEN,YANNI Saul Hospital Course: Patient is an 89-year-old male with a past medical history of CAD status post CABG,ICD, orthostatic hypotension on Droxidopa, history of multiple falls including one episode that resulted in subdural hematoma (requiring [place] admission with no surgical intervention required) presents with c/o hedache with hx of mechanical fall 4 days prior to admission. CT scan of the head upon presentation showed-Subdural hematoma with blood products along the falx and left tentorial leaflet and extending along the left cerebral convexity. No significant mass effect. No midline shift. Vital signs upon presentation -temperature 98.3, pulse 69, respiratory rate 18, blood pressure 104/53, SPO2 95% on room air Patient was admitted for the following conditions: Subdural hematoma: Patient presented with headache status post fall. CT scan done upon presentation showed a /dense of subdural hematoma with blood products along the falx and left tentorial leaflet and extending along the left cerebral convexity. He continued to have headache along with having neck pain and stiffness, repeat CT head was done which showed stable subdural hematoma, CT cervical was done as he had hx of fall and was complaining of neck pain and did not show any evidence of any fracture. Patient has been oriented times person, neuro checks did not reveal any focal neurological symptoms signs, Ever since admission his headache has been improved , we have been avoiding narcotics, patient has been on Fioricet which he has been having good response to. Low-dose vitamin K was administered during his stay as per neurosurgery recommendations * Avoid Nsaids. * Continue Fioricet for headaches as prescribed. * Follow up with Primary care physician and neurosurgery in one week. * Seek emergent care if any neurological sign or symptom develop or in case of worsening headache. Hyponatremia-02/02 sodium went down to 131, started on salt tabs, which improved to 133>>134>>135, will continue to monitor sodium every shift along with serum osmolality, in regards to his subdural hematoma, he was strictly monitored for SIADH and cerebral salt wasting syndrome * Please continue salt tabs TID for 1 week. * Check BEP on sunday(02/07/2017) Diet -heart healthy diet, tolerated well no nausea no vomiting. DVT prophylaxis - ALPS Code status -DNR/DNI Allergies: Coded Allergies: No Known Allergies (01/30/17) Pertinent Lab Results: CT Head: Subdural hematoma with blood products along the falx and left tentorial leaflet and extending along the left cerebral convexity. No significant mass effect. No midline shift. Cervical CT: 1. There are no acute fractures or subluxations. 2. There are multilevel degenerative changes which appear similar compared to the prior study. Na upon discharge 135 Disposition Summary Disposition Principal Diagnosis: Subdural Hematoma Additional Diagnosis: Hyponatremia Discharge Disposition: short term rehab Discharge Instructions General Discharge Information Code Status: Do Not Resucitate/Intubat Patient's Diet: Heart healthy Patient's Activity: As tolerated with assistance Follow-Up Instructions/Appts: * Follow up with Primary care physician and neurosurgery in one week. * Seek emergent care if any neurological sign or symptom develop or in case of worsening headache. * Please continue salt tabs TID for 1 week. * Check BEP on sunday(02/07/2017) Medications at Discharge Discharge Medications: Continue taking these medications: Carvedilol (Carvedilol) 12.5 MG TABLET 1 Tablet ORAL TWICE DAILY Comments: Last Taken: 02/03/17 Time: 0830 AM Magnesium Oxide (Magnesium Oxide) 400 MG TABLET 1 Tablet ORAL TWICE DAILY Comments: Last Taken: 02/03/17 Time: 0830 AM Multivitamin (Multiple Vitamins) 1 EACH TABLET 1 Tablet ORAL Every night Comments: Last Taken: 02/02/17 Time: 1030 PM Sertraline HCl (Zoloft) 100 MG TABLET 1 Tablet ORAL DAILY Comments: NOT GIVEN IN HOSPITAL Ranitidine HCl (Zantac) 150 MG TABLET 1 Tablet ORAL TWICE DAILY Comments: PEPCID 20MG TABLET PO GIVEN [facility] @ 0830 AM 02/03/17 Atorvastatin Calcium (Atorvastatin Calcium) 40 MG TABLET 1 Tablet ORAL DAILY Comments: Last Taken: 02/02/17 Time: 515 PM Droxidopa (Northera) 300 MG CAPSULE 2 Capsule ORAL 3 TIMES DAILY BEFORE MEALS Qty = 540 Comments: Last Taken: 02/03/17 Time: 12 PM (NOON) Ranolazine (Ranexa) 500 MG TAB.ER.12H 1 Tablet ORAL TWICE DAILY Comments: Last Taken: 02/03/17 Time: 0830 AM Cholecalciferol (Vitamin D3) 1,000 UNIT TABLET 1 Tablet ORAL DAILY Comments: Last Taken: 02/03/17 Time: 0830 AM Start taking the following new medications: Butalb/Acetaminophen/Caffeine (Xvidoo-Aiffjaty-Pysy 50-325-40) 50 MG-325 MG-40 MG TABLET 1 Tablet ORAL EVERY 4 HOURS NEEDED as needed for HEADACHE Qty = 30 No Refills Comments: Last Taken: 02/03/17 Time: 12 PM (NOON) Sodium Chloride (Sodium Chloride) 1 GRAM TABLET 1 Milligram ORAL THREE TIMES DAILY Qty = 21 No Refills Instructions: Please get BEP checked on sunday and re-evaluate further need of salt tabs Copies To: VENU ALLEN,NAVIN FRITZ MD,YANNI Saul
[2017-02-02 16:00] VITALS: BP 110/54
--- NOTE | 2017-02-02 20:14 | Event Note ---
Event Note Event Note: Called services, she has recommended that patient okay to be discharged today,PT evaluated the patient and has recommended discharge to [facility], patient will be discharged pending bed availability.
[2017-02-03] VITALS: BP 130/60
--- NOTE | 2017-02-03 05:31 | NUR ---
PT C/O HEADACHE ALL NIGHT. PT ATTEMPTED FIORICET x2 WITH MINIMAL RELIEF. PT WAS ABLE TO SLEEP FOR 3-4 HRS BUT STATES AWOKE WITH SEVERE PAIN. [facility] SCALE WNL AND UNCHANGED AND NEUROS INTACT. DR. VIVEROS NOTIFIED. PT REQUESTING MORPHINE FOR PAIN BECAUSE PAIN IS SO SEVERE. PT IS CONCERNED OF TRANSFER TO [facility] LATER TODAY SECONDARY TO UNCONTROLLED HEADACHE. MD AWARE. IV TYLENOL GIVEN WILL CONTINUE TO MONITOR
--- NOTE | 2017-02-03 06:50 | NUR ---
PER PT PAIN NOT RELIEVED FROM FIORIOCET OR IV TYLENOL. PT PAIN STILL 9/10 PT STILL HAS LIGHT SENSITIVITY AND OCCASSIONAL NAUSEA. DR. HOLLIDAY AWARE
[2017-02-03 08:00] VITALS: BP 122/60
--- NOTE | 2017-02-03 08:18 | PN- Housestaff ---
LIZA ALLEN,[facility] 02/03/17 0818: Subjective Follow-up For: Subdural hematoma Subjective: Patient seen and examined this morning. He was lying in bed in no acute distress, he had had a bad headache last night which responded well to IV Tylenol ever since patient has been having mild headache. Vitals within normal limits. Remains on 2 L of nasal cannula oxygen setting in mid 90s. Sodium level has been stable, today 136, continue on Salt Tablets 2g NaCl TID, Review of Systems Constitutional: Denies: chills, fever. Cardiovascular: Denies: chest pain, palpitations. Respiratory: Denies: cough, short of breath, sputum production. Gastrointestinal: Denies: abdominal pain, constipation, nausea, vomiting. Genitourinary: Denies: dysuria, frequency. Objective Last 24 Hrs of Vital Signs/I&O Vital Signs Date Time Temp Pulse Resp B/P Pulse O2 O2 Flow FiO2 Ox Delivery Rate 02/03 0800 94 Room Air 02/03 0800 97.8 73 20 122/60 94 Room Air 02/03 0000 94 Room Air 02/03 0000 99.2 72 20 130/60 94 Room Air 02/02 2145 80 148/64 02/02 2145 80 148/64 02/02 1600 98.2 80 24 110/54 94 Room Air 02/02 1529 95 Room Air 02/02 1415 Room Air Intake & Output 02/03 1600 02/03 0800 02/03 0000 Intake Total 200 640 Output Total 200 550 Balance 0 90 Intake, Oral 200 640 Number 1 Bowel Movements Output, Urine 200 550 Physical Exam General Appearance: Alert, Oriented X3, Cooperative Cardiovascular: Regular Rate, Normal S1, Normal S2, No Murmurs Lungs: Clear to Auscultation, Normal Air Movement Abdomen: Normal Bowel Sounds, Soft, No Tenderness Neurological: Normal Speech, Strength at 5/5 X4 Ext, Normal Tone, Sensation Intact, Cranial Nerves 3-12 NL Extremities: No Clubbing, No Cyanosis, No Edema Current Medications: Current Medications Sig/Rossana Start time Last Medication Dose Route Stop Time Status Admin Acetaminophen 1,000 MG ONCE ONE 02/03 0445 DC 02/03 N/A 1 UNIT IV 02/03 045 0528 Acetaminophen 650 MG Q6P PRN 01/30 1730 AC 02/02 PO 0446 Acetaminophen/ 1 TAB Q4P PRN 01/31 0845 AC 02/03 Butalbital/Caffeine PO 0832 Atorvastatin Calcium 40 MG 1700 01/31 1700 AC 02/02 PO 1713 Carvedilol 12.5 MG BID 01/30 2200 AC 02/03 PO 0812 Cholecalciferol 1,000 IU DAILY 01/31 1000 AC 02/03 PO 0816 Droxidopa 600 MG TIDAC 01/31 1700 AC 02/03 PO 0828 Famotidine 20 MG BID 01/30 2200 AC 02/03 PO 0813 Magnesium Oxide 400 MG BID 01/30 2200 AC 02/03 PO 0813 Multivitamins 1 TAB QPM 01/30 2200 AC 02/02 Therapeutic PO 2149 Ranolazine 500 MG BID 01/30 220 AC 02/03 PO 0814 Sodium Chloride 2,000 MG TID 02/01 1152 AC 02/03 PO 0815 Last 24 Hrs of Lab/Cesario Results Last 24 Hrs of Labs/Mics: Laboratory Tests 02/03/17 0420: Anion Gap 8, Estimated GFR > 60, BUN/Creatinine Ratio 31.4 H Assessment/Plan Assessment: Patient is an 89-year-old male with a past medical history of CAD status post CABG,ICD, orthostatic hypotension on Droxidopa, history of multiple falls including one episode that resulted in subdural hematoma(requiring [place] admission with no surgical intervention required) presents with c/o hedache with hx of mechanical fall 4 days ago. Vital signs -temperature 98.3, pulse 69, respiratory rate 18, blood pressure 104 /53, SPO2 95% on room air CT scan of the head -Subdural hematoma with blood products along the falx and left tentorial leaflet and extending along the left cerebral convexity. No significant mass effect. No midline shift. Plan - Subdural hematoma: Patient presented with headache status post fall. CT scan done upon presentation showed a /dense of subdural hematoma with blood products along the falx and left tentorial leaflet and extending along the left cerebral convexity. He continued to have headache along with having neck pain and stiffness, repeat CT head was done which showed stable subdural hematoma, CT cervical and not show any evidence of any fracture. -He was admitted to ICU for close monitoring, neuro checks every, neck stiffness, nausea, vomiting repeat CT done showed stable subdural hematoma. -Ever since admission his headache has been improving, we have been avoiding narcotics, currently patient is on Fioricet which he has been having good response to. -Patient has been oriented times person, neuro checks did not reveal any focal neurological symptoms signs. -Low-dose vitamin K was administered yesterday as per neurosurgery recommendations. -Hyponatremia-02/02 sodium went down to 131, started on salt tabs, which has improved to 133>>134>>136, will continue to monitor sodium every shift along with serum osmolality, in regards to his subdural hematoma, have to strictly monitor him for SIADH and cerebral salt wasting syndrome Diet -heart healthy diet, tolerating well no nausea no vomiting. DVT prophylaxis - ALPS Code status -DNR/DNI Problem List: 1. Acute subdural hematoma 2. Headache Pain Ratin Pain Location: headache Pain Goal: Remain pain free Pain Plan: fiorocet Tomorrow's Labs & Rationales: Patient was discharged Discharge Plan Discharge Disposition: STR/NH Stable for Discharge? Yes Anticipated Discharge (Day): today If Discharged Today/In 24 Hrs: W-10/discharge paper done, DC summary done, CMR done GAUDENCIO LEA MD 02/04/17 0913: Attending MD Review Statement Attending Statement Attending MD Statement: examined this patient, discuss w/resident/PA/C.O.D. BILLER, agreed w/resident/PA/C.O.D. BILLER, reviewed EMR data (avail) Attending Assessment/Plan: Patient is improved. No neurological dysfunction, no complaints except for mild "head pain" (patient denies headache). Sodium improved and now normal. Per resident conversation with neurosurgeon, patient is stable for discharge to [facility] with otupatient follow up. Will continue home medications, continue salt tabs for 1 week and recheck sodium level on 02/07/17. Follow up with outpatient PCP.
[2017-02-03 11:15] VITALS: BP 122/60
[2017-02-03 12:00] VITALS: BP 120/60
== END 2017-02-03 12:30 | DRG 86 ==
LOC: ENRESERVTM → ENRESERVDT → ERH 10:49 → 1NO 13:15 → CRI 13:15 → ERHI 13:15 → EDBEDREQ 16:15 → 1NO 18:50 → CRI 01-31 08:22
PROVIDERS: Emergency Medicine; Internal Medicine; Student in an Organized Health Care Education/Training Program; ADMIT Hospitalist
DX: S06.5X0A Traumatic subdural hemorrhage without loss of consciousness, initial encounter (principal); I50.22 Chronic systolic (congestive) heart failure; I11.0 Hypertensive heart disease with heart failure; I48.91 Unspecified atrial fibrillation; E87.1 Hypo-osmolality and hyponatremia; I25.5 Ischemic cardiomyopathy; Z95.1 Presence of aortocoronary bypass graft; W18.30XA Fall on same level, unspecified, initial encounter; Z91.81 History of falling; Y93.9 Activity, unspecified; Y92.009 Unspecified place in unspecified non-institutional (private) residence as the place of occurrence of the external cause; E78.5 Hyperlipidemia, unspecified; I25.2 Old myocardial infarction; K21.9 Gastro-esophageal reflux disease without esophagitis; I25.10 Atherosclerotic heart disease of native coronary artery without angina pectoris; Z95.810 Presence of automatic (implantable) cardiac defibrillator; Z87.891 Personal history of nicotine dependence; Z66 Do not resuscitate
CPT/HCPCS: 1NP; 84133; 84300; CCU; 36415; 73501; 82436; 82570; 93005; 93010; 96374; 97116-GO; 97162-GP; 97530-GO; 99291; J0131; J2270; J2405

== ENCOUNTER 2017-02-05 19:10 | Emergency (ER) | payer OTHER, MEDICARE ==
[~2017-02-05] VITALS: Ht 177.8 cm; Wt 61.7 kg
[~2017-02-05 19:10] MED LIST changes: +ATORVASTATIN CA40 M1 PO; +BUTALB-ACETAMI1 EACH PO; +NORTHERA300 MG PO; +RANEXA500 M1 PO; +SODIUM CHLORIDE1 G2 PO; +VITAMIN D31000 UNI2 PO; +VITAMIN E100 UNI1 PO
--- NOTE | 2017-02-05 19:39 | ED HEADACHE COMPLAINT ---
History of Present Illness General Chief Complaint: Headache Stated Complaint: BIBA, JOSÉ, S/P SUBDURAL HEMATOMA Source: patient, family, old records, EMS Exam Limitations: no limitations Vital Signs & Intake/Output Vital Signs & Intake/Output Vital Signs Date Time Temp Pulse Resp B/P Pulse O2 O2 Flow FiO2 Ox Delivery Rate 02/05 1915 72 18 145/72 95 Room Air Allergies Coded Allergies: No Known Allergies (01/30/17) Reconcile Medications Acetaminophen (Mapap) 325 MG TABLET 2 TAB PO Q4H PRN PAIN/TEMP>101 (Reported) Atorvastatin Calcium 40 MG TABLET 1 TAB PO DAILY CHOLESTEROL (Reported) Bisacodyl 10 MG SUPP.RECT 1 SUP RC Q2D PRN CONSTIPATION (Reported) Butalb/Acetaminophen/Caffeine (Ydomwz-Khbkrunw-Ysyc 50-325-40) 50 MG-325 MG-40 MG TABLET 1 TAB PO Q8H unknown (Reported) Butalb/Acetaminophen/Caffeine (Bihwuk-Mosrmbyq-Mean 50-325-40) 50 MG-325 MG-40 MG TABLET 1 TAB PO Q4P PRN HEADACHE Carvedilol 12.5 MG TABLET 1 TAB PO BID HEART (Reported) Cholecalciferol (Vitamin D3) 1,000 UNIT TABLET 1 TAB PO DAILY SUPPLEMENT ( Reported) Dextrose 5 %-0.45 % NaCl (Dextrose 5%-0.45% NaCl IV Soln) 5 %-0.45 % IV.SOLN UNKNOWN (Reported) Droxidopa (Northera) 300 MG CAPSULE 2 CAP PO TIDAC UNKNOWN (Reported) Magnesium Hydroxide (Milk Of Magnesia) 400 MG/5 ML ORAL.SUSP 30 ML PO DAILY PRN CONSTIPATION (Reported) Magnesium Oxide 400 MG TABLET 1 TAB PO BID SUPPLEMENT (Reported) Multivitamin (Multiple Vitamins) 1 EACH TABLET 1 TAB PO QPM SUPPLEMENT ( Reported) Na Phos,M-B/Na Phos,Di-Ba (Fleet Enema) 19 GRAM-7 GRAM/118 ML ENEMA 1 E RC Q2D PRN CONSTIPATION (Reported) Ranitidine HCl (Zantac) 150 MG TABLET 1 TAB PO BID GI (Reported) Ranolazine (Ranexa) 500 MG TAB.ER.12H 1 TAB PO BID ANGINA (Reported) Sertraline HCl (Zoloft) 100 MG TABLET 1 TAB PO DAILY MENTAL HEALTH (Reported) Sodium Chloride 1 GRAM TABLET 1 MG PO TID low salt Please get BEP checked on sunday and re-evaluate further need of salt tabs Triage Note: PT BIBA FROM [facility] C/O FRONTAL HEADACHE SINCE THIS AFTERNOON AND DOUBLE VISION SINCE YESTERDAY. +N/V STARTED WITH HEADACHE TODAY. ADMITTED TO [facility] ON 01/30 FOR SUBDURAL HEMATOM S/P FALL. Triage Nurses Notes Reviewed? yes HPI: Patient presents with a severe frontal headache that radiates to the top of his head. The pain has been constant since this afternoon. There are no aggravating or mitigating factors. Positive photophobia. Positive nausea. No blurry vision. Patient has a history of orthostatic hypotension with multiple falls. Patient did sustain a subdural hematoma recently and was admitted to the hospital. During the hospitalization he was having headaches that were relieved with IV Tylenol. Patient was discharged from the hospital to short-term rehabilitation. At the rehabilitation patient was given oral Tylenol as well as a Fioricet without relief so the patient was sent in for evaluation. The pain is throbbing and he rates it as 10 out of 10. There are no aggravating or mitigating factors. Past History Travel History Traveled to [place] past 21 day No Medical History Any Pertinent Medical History? see below for history Neurological: vertigo, IMBALANCE DIFFICULTIES SUBDURAL HEMATOMA EENT: cataracts, hearing loss Cardiovascular: AFIB, hyperlipidemia, myocardial infarction, CABGX3 ORTHOSTATIC HYPOTENSION CARDIAC CATHERIZATION ISCHEMIC CARDIOMYOPATHY 3 CARDIAC STENTS CHF, PACER/DEFIBLCW Respiratory: NONE Gastrointestinal: GERD Hepatic: NONE Renal: NONE Musculoskeletal: NONE Psychiatric: depression Endocrine: NONE Blood Disorders: NONE Cancer(s): adrenal cancer CAMPAIGN ASSISTANT/Reproductive: NONE History of MRSA: No History of VRE: No History of CDIFF: No Influenza Vaccine: 08/05/16 Tetanus Vaccine: 03/03/15 Surgical History Surgical History: appendectomy, cholecystectomy, hernia repair-inguinal, TRIPLE BYPASS CARDIAC Psychosocial History Who do you live with Spouse Services at Home None What is your primary language [place]ymraes Tobacco Use: Quit >30 days ago ETOH Use: denies use Illicit Drug Use: denies illicit drug use Family History Family History, If Any: FATHER, . Relation not specified for: FHx: heart disease Hx Contributory? No Review of Systems Review of Systems Constitutional: Reports: no symptoms. Eyes: Reports: no symptoms. Ears, Nose, Throat, Mouth: Reports: no symptoms. Respiratory: Reports: no symptoms. Cardiovascular: Reports: no symptoms. Gastrointestinal/Abdominal: Reports: see HPI, nausea. Genitourinary: Reports: no symptoms. Musculoskeletal: Reports: no symptoms. Skin: Reports: no symptoms. Neurological/Psychological: Reports: see HPI, headache. Hematologic/Endocrine: Reports: no symptoms. Endocrine: Reports: no symptoms. Immunologic/Allergic: Reports: no symptoms. All Other Systems: Reviewed and Negative Physical Exam Physical Exam General Appearance: well developed/nourished, alert, awake, anxious, moderate distress Head: normal appearance Eyes: Bilateral: PERRL, EOMI. Ears, Nose, Throat: normal pharynx, normal ENT inspection, hearing grossly normal Neck: normal inspection, supple, full range of motion Respiratory: normal breath sounds, chest non-tender, no respiratory distress, lungs clear Cardiovascular: regular rate/rhythm, normal peripheral pulses Gastrointestinal: normal bowel sounds, soft, non-tender, no organomegaly Back: normal inspection, normal range of motion Extremities: normal inspection, normal capillary refill, normal range of motion, no edema Psychiatric: awake, alert, oriented x 3 Cranial Nerves: normal hearing, normal speech, PERRL Coordination/Gait: normal finger to nose Motor/Sensory: no motor/sensory deficits Skin: intact, normal color, warm/dry Core Measures Severe Sepsis Present: No Septic Shock Present: No Progress Differential Diagnosis: migraine JOSÉ, subarach. Hem., tension JOSÉ Plan of Care: Orders Procedure Date/time Status COMPREHENSIVE METABOLIC PANEL 02/05 1938 Complete CBC WITHOUT DIFFERENTIAL 02/05 1938 Complete Laboratory Tests 02/05/17 2006: Anion Gap 5, Estimated GFR > 60, BUN/Creatinine Ratio 25.7 H, Glucose 182 H, Calcium 9.3, Total Bilirubin 0.6, AST 24, ALT 34, Alkaline Phosphatase 75, Total Protein 6.0 L, Albumin 3.6, Globulin 2.4, Albumin/Globulin Ratio 1.5, CBC w Diff NO MAN DIFF REQ, RBC 4.01 L, MCV 92.0, MCH 31.0, RDW 15.0 H, MPV 7.4, Gran % 78.4 H, Lymphocytes % 10.3 L, Monocytes % 9.7 H, Eosinophils % 1.0, Basophils % 0.6, Absolute Granulocytes 8.2 H, Absolute Lymphocytes 1.1 L, Absolute Monocytes 1.0 H, Absolute Eosinophils 0.1, Absolute Basophils 0.1, PUBS MCHC 33.8 Comments: Patient is pain-free after IV Tylenol. Departure Departure Disposition: ACUTE REHAB FACILITY Condition: Stable Clinical Impression Primary Impression: Headache Referrals: CATRINA ALLEN,YANNI Saul Departure Forms: Customer Survey General Discharge Information
[2017-02-05 20:15] LABS: ABSOLUTE BASOPHIL COUNT 0.1 /CUMM (0.0-0.2); ABSOLUTE EOSINOPHIL COUNT 0.1 /CUMM (0.0-0.7); ABSOLUTE GRANULOCYTE CT 8.2 /CUMM (1.4-6.5); ABSOLUTE LYMPH COUNT 1.1 /CUMM (1.2-3.4); BASOPHIL % 0.6 % (0.0-2.0); GRANULOCYTE % 78.4 % (42.2-75.2); HEMATOCRIT 36.9 % (42-52); MEAN CORPUSCULAR HGB CONC 33.8 G/DL (33.0-37.0); MEAN PLATELET VOLUME 7.4 FL (7.4-10.4); PLATELET COUNT 196 /CUMM (130-400); RED BLOOD CELL CT 4.01 /CUMM (4.70-6.10); WHITE BLOOD CELL COUNT 10.4 /CUMM (4.8-10.8)
[2017-02-05] MEDS ORDERED: BUTALB-ACETAMI1 EACH PO (20:32)
[2017-02-05] MEDS ORDERED: MILK OF MA400 MG/52 PO (20:37)
[2017-02-05] MEDS ORDERED: BISACODYL10 M1 RC (20:40)
[2017-02-05] MEDS ORDERED: FLEET ENEMA133 ML RC (20:47)
[2017-02-05] MEDS ORDERED: MAPAP325 M1 PO (20:49)
[2017-02-05] MEDS ORDERED: [UNRECOGNIZED DRUG - CODE] IV (21:08)
[2017-02-05 21:50] VITALS: BP 142/70
== END 2017-02-05 21:53 ==
LOC: ERH 19:10
PROVIDERS: Emergency Medicine
DX: R51 Headache (principal)
CPT/HCPCS: 96374; 96375; J0131; J2405